=== PATIENT | male | born 1950 | race African-American/Black ===

== ENCOUNTER 2017-09-25 08:39 | Outpatient (CLI) | payer MEDICARE ==
--- NOTE | 2017-09-25 09:54 | CT ---
CT CHEST WITHOUT CONTRAST: Date: 09/25/17 HISTORY: COPD, pulmonary nodule. COMPARISON: 09/12/16. FINDINGS: Absence of IV contrast reduces the sensitivity of exam, particularly for the evaluation of mediastina l, hilar, and vascular structures. There are vascular calcifications without evidence of aneurysmal dilatation of the thoracic aorta. No pleural or pericardial effusions are seen. The tracheobronchial tree is patent. The 7.0 mm nodular density with associated scarring in the right upper lobe is stable. Scarring in th e left lung is again seen. Evidence of old granulomatous disease is again noted. No new parenchymal l randolph nodules are identified. Bony structures are stable. IMPRESSION: Stable exam. POS: OFF
== END 2017-09-25 08:40 | disposition home or self-care (01) ==
LOC: CT 08:39
PROVIDERS: ATTEND Internal Medicine
DX: J44.9 Chronic obstructive pulmonary disease, unspecified (principal); R91.1 Solitary pulmonary nodule
CPT/HCPCS: 71250

== ENCOUNTER 2018-09-24 08:57 | Outpatient (CLI) | payer MEDICARE ==
[2018-09-24 09:27] LABS: Estimated GFR-MDRD - POC Greater than 90
--- NOTE | 2018-09-24 10:16 | CT ---
CONTRAST ENHANCED CT CHEST: History: Patient with pulmonary nodules Comparison: CT September 2017 FINDINGS: Contrast enhanced CT of the chest demonstrates areas of lung parenchymal scarring in both upper lobes . An area of spiculated density in the right upper lobe is stable and unchanged since the previous ex am. Areas of lung parenchymal granulomatous changes seen in the left lung base. Extensive coronary artery calcifications seen. IMPRESSION: Stable CT appearance of the chest. POS: KIKEH
[2018-09-24] MEDS ORDERED: ISOVUE-370 76%-LOCM 1 ML ONE (13:39)
== END 2018-09-24 08:58 | disposition home or self-care (01) ==
LOC: BICCT 08:57
PROVIDERS: ATTEND Internal Medicine
DX: R91.1 Solitary pulmonary nodule (principal)
CPT/HCPCS: 71260; 82565

== ENCOUNTER 2019-03-06 13:56 | Inpatient (IN) | payer MEDICARE ==
[2019-03-06 14:36] LABS: Hemoglobin 14.4 g/dL (14.0-18.0); Mean Corpuscular HGB CONC 32.2 g/dL (32.0-36.0); Mean Corpuscular Hemoglobin 30.3 pg (27.0-31.0); Mean Corpuscular Volume 94.1 fL (78.0-98.0); Mean Platelet Volume 8.1 fL (7.4-10.4); Platelet Count 286 thou/uL (130-400); RBC Distribution Width 13.5 % (11.5-14.5); Red Blood Cell (RBC) Count 4.75 mill/uL (4.70-6.10); White Blood Cell (WBC) Count 4.4 thou/uL (4.8-10.8)
--- NOTE | 2019-03-06 14:46 | RAD ---
EXAM: Single view of the chest HISTORY: Shortness of breath COMPARISON: 02/27/2019 FINDINGS: Single view of the chest shows a normal sized cardiomediastinal silhouette. Stable increas ed interstitial markings are seen in the right apex. There is no evidence of consolidation, mass, or pleural effusion. The bones are unremarkable. IMPRESSION: No evidence of acute cardiopulmonary disease
[2019-03-06 14:53] LABS: Lymphocytes 22 % (21-51); MDiff Complete? YES; Monocytes 8 % (0-10); Neutrophil 68 % (42-75); Platelet Morphology Comment Appears Adequate; Reactive Lymphocytes 2 % (0-10)
[2019-03-06 14:58] LABS: ALT (SGPT) 23 U/L (8-55); AST (SGOT) 24 U/L (5-34); Albumin 3.6 g/dL (3.4-4.8); Alkaline Phosphatase 68 U/L (40-150); Anion Gap 16 mmol/L (10-20); BUN (Urea Nitrogen) 17 mg/dL (8.4-25.7); Bilirubin, Total 0.5 mg/dL (0.2-1.2); Calc. Creatinine Clearance 0 mL/min (70-130); Calcium 8.8 mg/dL (7.8-10.44); Carbon Dioxide 26 mmol/L (23-31); Chloride 105 mmol/L (98-107); Estimated GFR-MDRD 90; Globulin 2.4 g/dL (2.4-3.5); Glucose 119 mg/dL (80-115); Potassium 4.6 mmol/L (3.5-5.1); Sodium 142 mmol/L (136-145)
[2019-03-06] MEDS ORDERED: Furosemide 40 MG/4 ML VIAL ONE (15:49)
[2019-03-06 18:19] LABS: Troponin I 0.025 ng/mL (< 0.028)
[2019-03-06 20:47] LABS: Troponin I 0.018 ng/mL (< 0.028)
[2019-03-06] MEDS ORDERED: hydrALAZINE 20 MG/ML VIAL SLOW IVP PRN (22:24)
[2019-03-06] MEDS ORDERED: Ondansetron PF 4 MG/2 ML Vial IVP PRN (22:27)
[2019-03-06] MEDS ORDERED: Acetaminophen 325 MG TAB PO PRN (22:27)
[2019-03-06] MEDS ORDERED: Ondansetron ODT 4 MG TAB PO PRN (22:27)
[2019-03-06] MEDS ORDERED: Nicotine 14 MG PATCH TD SCH (22:30)
[2019-03-07] MEDS ORDERED: Thiamine HCl 200 MG/2 ML VIAL IM SCH (00:15)
[2019-03-07] MEDS ORDERED: Diazepam 5 MG TAB PO PRN (00:15)
[2019-03-07] MEDS ORDERED: Diazepam 5 MG TAB PO SCH (00:15)
[2019-03-07 00:22] LABS: Medtox Reader # READER 1
[2019-03-07 00:23] LABS: Amphetamine Not Detected (NotDetected); Barbiturates Screen Not Detected (NotDetected); Benzodiazepine Screen Not Detected (NotDetected); Cocaine Metabolite Screen Detected (NotDetected); Medtox Control Line Valid? VALID (VALID); Methadone Not Detected (NotDetected); Methamphetamine Not Detected (NotDetected); Opiate Screen Not Detected (NotDetected); Oxycodone Screen Not Detected (NotDetected); Phencyclidine (PCP) Not Detected (NotDetected); THC/Cannabinoid Screen Not Detected (NotDetected); Tricyclic Screen Not Detected (NotDetected)
[2019-03-07 00:43] LABS: Anion Gap 11 mmol/L (10-20); BUN (Urea Nitrogen) 16 mg/dL (8.4-25.7); Calc. Creatinine Clearance 70 mL/min (70-130); Calcium 9.2 mg/dL (7.8-10.44); Carbon Dioxide 36 mmol/L (23-31); Chloride 101 mmol/L (98-107); Estimated GFR-MDRD Greater than 90; Glucose 96 mg/dL (80-115); Magnesium 1.5 mg/dL (1.6-2.6); Potassium 3.9 mmol/L (3.5-5.1); Sodium 144 mmol/L (136-145)
[2019-03-07] MEDS ORDERED: PROVENTIL INHALER 6.7 G (200 INHALATIONS) INH PRN (01:00)
[2019-03-07] MEDS ORDERED: Magnesium 2 GM/50 ML 1 GM in Premix Bag 1 BAG IVPB SCH (02:15)
[2019-03-07] MEDS ORDERED: Amiodarone 150 MG in Dextrose 5% in Water 100 ML IVPB SCH (02:30)
--- NOTE | 2019-03-07 02:30 | HP ---
PRIMARY CARE PHYSICIAN: Todd Lopez MD CHIEF COMPLAINT: Shortness of breath and lower extremity edema. HISTORY OF PRESENT ILLNESS: Mr. Dowd is a 68-year-old man with past medical history of chronic obstructive pulmonary disease, who he is under the direct care of Dr. Sherry hastings, who presented to [facility] earlier today after he experienced worsening shortness of breath and lower extremity edema today. He states he had noticed swelling down his lower extremities developed about 3 weeks ago and had gradually worsened since. He had denied any fever, chills, any headache, blurred vision, or dizziness. He had denied any chest pain, palpitations, abdominal pain, nausea, vomiting, or any change with his stool. He reports drinking about 2 to 3 beers a day, which he states that he had one this morning prior to coming to the hospital. He had denied any symptoms of heart failure in the past , he had denied any history. During his initial workup, cardiac enzymes were found to be negative x2. BNP was elevated at 969.2. Portable chest x-ray was performed and showed no evidence of acute cardiopulmonary disease. Due to the suspicion of a new CHF, the patient was given bolus of IV furosemide 40 mg in the emergency department x1. A consult for Cardiology Services, Dr. Layton, was placed and an echocardiogram was ordered for the morning. It was determined that the patient will be admitted for further workup and management of his symptoms. REVIEW OF SYSTEMS: All other systems reviewed and found to be negative unless mentioned in the HPI. PAST MEDICAL HISTORY: Chronic obstructive pulmonary disease. PAST SURGICAL HISTORY: Leg surgery. SOCIAL HISTORY: The patient reports drinking 2 to 3 beers a day. He states that he has abused marijuana in the past and he uses off and on, and he reports smoking about a half pack of cigarettes per day. KNOWN ALLERGIES: None. CURRENT HOME MEDICATIONS: 1. Aspirin 81 mg daily. 2. Albuterol 90 mcg one inhalation q.6 hours as needed for shortness of breath. 3. Anoro one inhalation daily. PHYSICAL EXAMINATION: VITAL SIGNS: BP 109/72, pulse 94, respirations 16, temperature 97.3 degrees Fahrenheit, O2 saturation 92% on room air. GENERAL: The patient is awake, alert, and oriented x3. He is currently lying comfortably in bed, in no acute distress at this time. HEENT: Atraumatic, normocephalic. Pupils are round and reactive to light. Extraocular muscles intact. Moist mucous membranes noted. Poor oral hygiene noted. NECK: Soft and supple. JVD noted. Trachea midline. CARDIOVASCULAR: Positive S1 and S2. Regular rate and rhythm. No murmur auscultated. RESPIRATORY: Clear to auscultation bilaterally. No wheezes, rales, or rhonchi. ABDOMEN: Soft and nontender. Bowel sounds present. MUSCULOSKELETAL: Strength 5+ bilaterally upper and lower extremities. Moves all extremities equal. Pedal and radial pulses 2+ bilaterally. 2 to 3+ pitting edema noted in bilateral lower extremities up to his knees. NEUROLOGIC: Cranial nerves II through XII grossly intact. No focal deficits noted. Speech intact and normal. Gait not assessed. SKIN: Warm, dry, and intact. No rashes. No ulceration noted. PSYCHIATRIC: Good mood and affect. LABORATORY DATA: WBC 4.4, RBC 4.75, hemoglobin 14.4, platelets 286. Sodium 142 , potassium 4.6, anion gap 16, BUN 17, creatinine 0.85, estimated GFR 90, glucose 119. Troponin 0.021, 0.025, 0.018. BNP 969.2. Portable chest x-ray showed no evidence of acute cardiopulmonary disease. ASSESSMENT AND PLAN: 1. New onset congestive heart failure, the patient's BNP is elevated at 969, and due to patient's symptoms of his shortness of breath and bilateral lower extremity edema, he will be treated symptomatically with IV furosemide. Consult Cardiology Services, Dr. Layton, will be placed, and an echocardiogram is ordered at this time. We will monitor the patient's electrolytes and he will remain on telemetry for further monitoring. 2. Chronic obstructive pulmonary disease, currently stable at this time. He will be restarted on his home regimen at this time and he will be monitored closely for any symptoms. 3. Deep venous thrombosis and gastrointestinal prophylaxis. CODE STATUS: Full code. His surrogate decision maker will be Dmitry Hoff per patient. DISPOSITION: Pending further workup and clinical findings. Job ID: [id number] MTDD
[2019-03-07] MEDS: Furosemide 40 MG/4 ML VIAL SLOW IVP SCH (05:51)
[2019-03-07 06:07] LABS: Anion Gap 12 mmol/L (10-20); BUN (Urea Nitrogen) 14 mg/dL (8.4-25.7); Calc. Creatinine Clearance 81 mL/min (70-130); Calcium 8.7 mg/dL (7.8-10.44); Carbon Dioxide 30 mmol/L (23-31); Chloride 102 mmol/L (98-107); Estimated GFR-MDRD Greater than 90; Glucose 123 mg/dL (80-115); Potassium 3.9 mmol/L (3.5-5.1); Sodium 140 mmol/L (136-145)
[2019-03-07 06:14] LABS: Troponin I 0.014 ng/mL (< 0.028)
[2019-03-07] MEDS: Folic Acid 1 MG TAB PO SCH (08:05)
[2019-03-07] MEDS: Enoxaparin Sodium 40 MG/0.4 ML SYRINGE SC SCH (08:05)
[2019-03-07] MEDS: Famotidine 20 MG TAB PO SCH ×2 (08:05→20:30)
[2019-03-07] MEDS: Multivitamin W/ Minerals 1 TAB PO SCH (08:05)
[2019-03-07 08:06] LABS: Hemoglobin 13.7 g/dL (14.0-18.0); Mean Corpuscular HGB CONC 31.9 g/dL (32.0-36.0); Mean Corpuscular Hemoglobin 29.9 pg (27.0-31.0); Mean Corpuscular Volume 93.8 fL (78.0-98.0); Mean Platelet Volume 8.1 fL (7.4-10.4); Platelet Count 267 thou/uL (130-400); RBC Distribution Width 13.5 % (11.5-14.5); Red Blood Cell (RBC) Count 4.56 mill/uL (4.70-6.10); White Blood Cell (WBC) Count 4.4 thou/uL (4.8-10.8)
[2019-03-07] MEDS ORDERED: Aspirin 81 mg Enteric Coated Tablet PO SCH (09:00)
[2019-03-07 09:15] LABS: Eosinophils 2 % (0-10); Lymphocytes 39 % (21-51); MDiff Complete? YES; Metamyelocyte 1 % (0-0); Monocytes 13 % (0-10); Neutrophil 39 % (42-75); RBC Morphology Normal; Reactive Lymphocytes 6 % (0-10)
[2019-03-07] MEDS ORDERED: Labetalol HCl 100 MG/20 ML VIAL SLOW IVP SCH (09:30)
[2019-03-07] MEDS ORDERED: Labetalol HCl 100 MG/20 ML VIAL SLOW IVP STA (09:46)
[2019-03-07] MEDS ORDERED: Iopamidol 370 76% 100 ML VIAL ONE (09:53)
[2019-03-07] MEDS ORDERED: Nitroglycerin 2% Ointment 1 INCH/1 GM Packet TOP SCH (10:00)
[2019-03-07] MEDS ORDERED: Magnesium 2 GM/50 ML 2 GM in Premix Bag 1 BAG IVPB SCH (10:00)
[2019-03-07] MEDS: Amiodarone 450 MG in Dextrose 5% in Water 250 ML IVPB SCH ×2 (10:57→19:00)
--- NOTE | 2019-03-07 11:02 | CON ---
DATE OF CONSULTATION: 03/07/2019 REASON FOR CONSULTATION: Wide-complex tachycardia. HISTORY OF PRESENT ILLNESS: Mr. Dowd is a 68-year-old gentleman, who comes to the hospital for shortness of breath. He was admitted and was found to have a BNP of 900, which was new, so he was given a dose of Lasix for possible CHF. He also had lower extremity edema. He admits to having mild chest pain in the midsternal area. This morning, he started having episodes of wide-complex rhythm. Heart rate in the 140s to 150s, just lightheadedness, but no syncope. He eventually went back in sinus, has remained in sinus. Concern for VT, so Cardiology has been consulted. He has never had a workup on his heart in the past. He does follow up with Dr. Powell for COPD as he smokes. He also reports drinking about 3 beers every day and abusing marijuana. His UDS was positive for cocaine, so he admits to using it on Sunday. PAST MEDICAL HISTORY: COPD. PAST SURGICAL HISTORY: Leg surgery. SOCIAL HISTORY: Drinks 3 beers a day. Uses marijuana and cocaine. Smokes half pack cigarettes a day. ALLERGIES: NO KNOWN DRUG ALLERGIES. OUTPATIENT MEDICATIONS: 1. Aspirin 81 a day. 2. Albuterol inhaler. REVIEW OF SYSTEMS: A 12-point review of systems was done and was all negative unless stated in the history of present illness. PHYSICAL EXAMINATION: VITAL SIGNS: Temperature 97.5, pulse is 60 to 150, blood pressure 138/82, and saturating 98% on 2 L nasal cannula. GENERAL: Awake, alert, and oriented x3, in no distress. HEENT: Normocephalic, atraumatic. NECK: Supple. LUNGS: Have reduced breath sounds bilaterally. CARDIOVASCULAR: Distant heart sounds. S1 and S2. ABDOMEN: Soft. Positive bowel sounds. EXTREMITIES: Trace edema. SKIN: Warm and dry. LABORATORY DATA: Laboratory work was reviewed. White count of 4, hemoglobin of 14, hematocrit of 44, and platelet count of 286. Chemistries were unremarkable. Troponin negative x3. BNP was 969. Toxicology, positive for cocaine. IMAGING DATA: EKG was reviewed. Chest x-ray was reviewed. ASSESSMENT AND PLAN: 1. Wide-complex tachycardia, concern for VT. 2. Elevated BNP, concern for new onset congestive heart failure. 3. Substance abuse in the form of alcohol, cocaine, and marijuana. 4. Chronic obstructive pulmonary disease with possible exacerbation. PLAN: 1. Given his episodes of wide-complex rhythm being concerning for VT, we will have to rule out ischemia. We will plan on doing a heart catheterization. He is quite comfortable lying flat on his back, so we will get this done later today. 2. Continue amiodarone drip. 3. Agree with magnesium replacement. 4. Further recommendations per results of left heart catheterization and echocardiogram. Job ID: [id number]
--- NOTE | 2019-03-07 11:46 | PDOC.PN ---
- Subjective Encounter Start Date: 03/07/19 Encounter Start Time: 09:00 Subjective: no chest pain or sob, has palpitations/skipped beat per patient -: no abd pain or nausea -: No prior cardiac w/u, admits to using cocaine on sunday, drinks 3-5 beers/d - Objective Resuscitation Status - Order Detail: 03/06/19 22:27 Resuscitation Status Routine Co-Sign Provider: Resuscitation Status: FULL: Full Resuscitation MAR Reviewed: Yes Vital Signs & Weight: Vital Signs (12 hours) Temp Pulse Resp BP BP Pulse Ox 03/07/19 10:37 125 H 138/82 03/07/19 09:43 125 H 138/82 03/07/19 08:09 136/66 18 L 03/07/19 07:30 136/66 03/07/19 07:27 97.5 F L 100 18 95 03/07/19 06:36 92 L 03/07/19 06:31 121 H 20 85 L 03/07/19 04:00 140/72 92 L 03/07/19 03:29 97.9 F 90 22 H 132/68 92 L 03/07/19 02:15 109 H 03/07/19 01:26 108 H 15 95 03/07/19 01:00 109/72 Weight Weight 130 lb 1 oz I&O: 03/06/19 03/07/19 03/08/19 06:59 06:59 06:59 Intake Total 634.4 Output Total 1475 175 Balance -840.6 -175 Result Diagrams: 03/07/19 05:07 03/07/19 05:07 Phys Exam - Physical Examination HEENT: PERRLA, moist MMs Neck: no JVD, supple Respiratory: no wheezing, no rales rhonchi+ Cardiovascular: RRR, no significant murmur Gastrointestinal: soft, non-tender, positive bowel sounds Musculoskeletal: no edema, pulses present Neurological: non-focal, moves all 4 limbs Psychiatric: normal affect, A&O x 3 Dx/Plan (1) V-tach Code(s): I47.2 - VENTRICULAR TACHYCARDIA Status: Suspected (2) Acute exacerbation of CHF (congestive heart failure) Code(s): I50.9 - HEART FAILURE, UNSPECIFIED Status: Acute Qualifiers: Heart failure type: unspecified Qualified Code(s): I50.9 - Heart failure, unspecified (3) Cocaine abuse Code(s): F14.10 - COCAINE ABUSE, UNCOMPLICATED Status: Acute (4) COPD (chronic obstructive pulmonary disease) Status: Chronic Qualifiers: COPD type: chronic bronchitis (5) Alcohol abuse Code(s): F10.10 - ALCOHOL ABUSE, UNCOMPLICATED Status: Chronic (6) Tobacco abuse Code(s): Z72.0 - TOBACCO USE Status: Chronic - Plan is on amiodarone drip, has recieved 2 doses of 2g mgso4 iv -: was given a dose of labetalol to break wide complex tach likely vtach -: d/w and -: aspirin, nitropaste, lasix -: for cath today, pending echo. Counselled reg cocaine/alc and tob usage * . Review of Systems - Medications/Allergies Allergies/Adverse Reactions: Allergies Allergy/AdvReac Type Severity Reaction Status Date / Time No Known Allergies Allergy Verified 03/06/19 18:19 Medications: Current Medications Acetaminophen (Tylenol) 650 mg PO Q4H PRN PRN Reason: Headache/Fever/Mild Pain (1-3) Albuterol Sulfate (Proventil Hfa) 2 puff INH Q4HR PRN PRN Reason: SOB &/or Wheezing Albuterol/Ipratropium (Duoneb) 3 ml NEB Q6HR [facility] Last Admin: 03/07/19 06:31 Dose: 3 ml Aspirin (Ecotrin) 81 mg PO DAILY [facility] Last Admin: 03/07/19 08:05 Dose: 81 mg Diazepam (Valium) 10 mg PO ONE [facility] Stop: 03/14/19 00:16 Last Admin: 03/07/19 02:55 Dose: 10 mg Diazepam (Valium) 10 mg PO Q4H PRN PRN Reason: FOR ASE 10 OR GREATER Stop: 03/08/19 04:00 Diazepam (Valium) 5 mg PO Q4H PRN PRN Reason: FOR ASE 10 OR GREATER Enoxaparin Sodium (Lovenox) 40 mg SC 0900 [facility] Last Admin: 03/07/19 08:05 Dose: 40 mg Famotidine (Pepcid) 20 mg PO BID [facility] Last Admin: 03/07/19 08:05 Dose: 20 mg Folic Acid (Folvite) 1 mg PO DAILY [facility] Last Admin: 03/07/19 08:05 Dose: 1 mg Furosemide (Lasix) 40 mg SLOW IVP 0600,1400 [facility] Last Admin: 03/07/19 05:51 Dose: Not Given Hydralazine HCl (Apresoline) 10 mg SLOW IVP Q4H PRN PRN Reason: Hypertension Amiodarone HCl 450 mg/ (Dextrose/Water) 259 mls @ 0 mls/hr IVPB INF SHARON; Protocol Last Admin: 03/07/19 10:57 Dose: 259 mls Magnesium Sulfate 2 gm/ Device 50 mls @ 50 mls/hr IVPB 1000 [facility] Stop: 03/07/19 12:00 Last Admin: 03/07/19 10:36 Dose: 50 mls Iron/Minerals/Multivitamins (Theragran M) 1 tab PO DAILY [facility] Last Admin: 03/07/19 08:05 Dose: 1 tab Magnesium Oxide (Magnesium Oxide) 400 mg PO DAILY [facility] Miscellaneous (Ase Protocol) 1 each FS ONE [facility] Stop: 03/17/19 00:16 Miscellaneous Information (Communication Order-Pharmacy) 0 each FS .CATH Sun [facility] Stop: 03/07/19 16:00 Nitroglycerin (Nitro-Bid 2% Ointment) 0.5 inch TOP 0200,1000,1800 [facility] Last Admin: 03/07/19 09:53 Dose: 0.5 inch Ondansetron HCl (Zofran Odt) 4 mg PO Q6H PRN PRN Reason: Nausea/Vomiting Ondansetron HCl (Zofran) 4 mg IVP Q6H PRN PRN Reason: Nausea/Vomiting Sodium Chloride (Flush - Normal Saline) 10 ml IVF Q12HR [facility] Last Admin: 03/07/19 08:10 Dose: 10 ml Sodium Chloride (Flush - Normal Saline) 10 ml IVF PRN PRN PRN Reason: Saline Flush Thiamine HCl (Thiamine) 100 mg PO DAILY [facility]
[2019-03-07] MEDS ORDERED: Fentanyl 100 MCG/2 ML VIAL ONE (12:29)
[2019-03-07] MEDS ORDERED: DOBUTamine 250 MG/20 ML VIAL ONE ×2 (12:50→12:51)
[2019-03-07] MEDS ORDERED: Heparin 10,000 UNITS/1 ML VIAL ONE ×2 (12:53→13:27)
[2019-03-07] MEDS ORDERED: Norepinephrine 4 MG/4 ML VIAL ONE (12:58)
[2019-03-07] MEDS ORDERED: TICAGRELOR 90 MG TABLET ONE (12:59)
[2019-03-07] MEDS ORDERED: Nitroglycerin 100MG/250ML BOT 250 ML ONE (13:07)
[2019-03-07] MEDS ORDERED: DOPamine 400 MG/D5W 250 ML 250 ML ONE (13:27)
[2019-03-07] MEDS ORDERED: Sodium Chloride 0.9% 1,000 ML IV SCH (14:45)
[2019-03-07] MEDS ORDERED: TICAGRELOR 90 MG TABLET PO SCH (15:00)
--- NOTE | 2019-03-07 16:09 | CON ---
DATE OF CONSULTATION: 03/07/2019 HISTORY OF PRESENT ILLNESS: I am seeing Mr. 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 His problems are, 1. Dense ventricular ectopy, long runs of ventricular tachycardia, appears to be monomorphic, right bundle, left axis in morphology. 2. Chronic systolic congestive heart failure with ischemic cardiomyopathy. a. Reduced LVEF at 20% to 25%, mild mitral regurgitation, mild aortic regurgitation, tricuspid regurgitation, moderate right and left atrial enlargement. Four chamber enlargement seen on echo on 02/25/2019. b. Left heart catheterization demonstrates 70% LAD disease, stented with the BMS stent x2; chronic total circumflex occlusion. 3. History of COPD and tobacco abuse. 4. Active cocaine use, most recently admits to using it last Sunday. ALLERGIES: NONE NOTED. MEDICATIONS: At home included, 1. Aspirin. 2. Anoro Ellipta. SUBJECTIVE: Mr. Dowd is a poor historian. From the note, it seems that he has been admitted with progressive dyspnea. He was found to have elevated BNP. Also, runs of wide-complex tachycardia was seen at rates of 140 to 150 beats per minute. He had no full loss of consciousness. No fever, chills, headaches, blurred vision, or dizziness. He does not have any chest pains and did not feel palpitations. No abdominal pain, nausea and vomiting are noted. No bloody stools or any other bleeding issues. No stroke-like symptoms. No fever, chills, or cough. He has progressive lower extremity edema. Rest of 12-point system otherwise unremarkable. PAST MEDICAL HISTORY: As above. SOCIAL HISTORY: The patient drinks 2 to 3 beers a day. He did use to use marijuana and also smokes half-pack of cigarettes a day. He does admit to using cocaine, most recently Sunday. FAMILY HISTORY: Not contributory. PAST SURGICAL HISTORY: Left leg surgery. OBJECTIVE DATA: VITAL SIGNS: Blood pressure is 90/63, heart rate 62, respiratory rate is 18, and temperature 97.4 degrees Fahrenheit. PHYSICAL EXAMINATION: GENERAL: Alert and oriented man, in no apparent distress. NECK: Supple. Jugular veins not distended. CHEST: Coarse without crackles. HEART: Sounds are regular to rate and rhythm. No murmur is heard. Gallop is appreciated. ABDOMEN: Benign. Bowel sounds positive. EXTREMITIES: Legs without edema, clubbing, or cyanosis. NEUROLOGIC: The patient is nonfocal. MUSCULOSKELETAL: No joint swelling or deformity. SKIN: Without rash. DATABASE: The EKG is reviewed, initially revealing sinus rhythm with frequent bigeminal PVCs. The PVCs are monomorphic. Right bundle or left axis in morphology is seen. AVR is positive. Subsequent EKGs reveal sinus rhythm with nonsustained runs of wide-complex rhythm and the same morphology. Telemetry strips likewise. LABORATORY DATA: White cell count 4.4, hemoglobin 13.7, and platelet count is 267. Sodium 140, potassium 3.9, BUN is 14, and creatinine 0.74. The magnesium initially was 1.5. They need to be replaced. Troponin I 0.025, 0.018, and 0.014. The chest x-ray from 03/06/2019 shows no evidence of acute cardiopulmonary disease. ASSESSMENT AND PLAN: Mr. Dowd is a 68-year-old man with history of chronic obstructive pulmonary disease, who is presenting with progressive dyspnea, some evidence of fluid overload, heart failure exacerbation, also had nonsustained wide-complex tachycardia requiring intravenous amiodarone and also labetalol therapy. I told him that his heart rhythm seems to have stabilized. He underwent left heart catheterization today demonstrating 100% circumflex occlusion and tight LAD stenosis, which was stented by Dr. Layton. His baseline echocardiogram reveals severe LV dysfunction of 20% to 25%. Unfortunately, he also has a history of drug abuse and cocaine abuse. Currently, I agree with the initiated management of IV and then p.o. amiodarone and beta-agustin therapy. Hopefully, the ventricular ectopy will improve with optimization of his coronary circulation. Nevertheless, transient suppression of these ventricular arrhythmias are reasonable. Long-term, he may be poor amiodarone candidate. If the ventricu;ar ectopy does not sanjay in spite of these measures, ablation is a remote possibility. On the other hand, for now, I would prefer medical management and optimization of his cardiac function. Clearly, he needs to quit substance abuse. Long-term, if no improvement in LVEF is seen over 3 months of aggressive medical management beyond 35%, we could consider ICD therapy. For now, he is not a candidate for that. Job ID: [id number] [facility]
[2019-03-07] MEDS ORDERED: Lorazepam 2 MG/ML VIAL SLOW IVP SCH ×2 (18:15→19:15)
[2019-03-07] MEDS ORDERED: Furosemide 40 MG/4 ML VIAL ONE (18:36)
[2019-03-07] MEDS ORDERED: Lorazepam 2 MG/ML VIAL ONE (18:59)
[2019-03-07 19:03] LABS: #Basophils 0.2 thou/uL (0.0-0.2); #Lymphocytes 1.4 thou/uL (1.20-3.40); #Monocytes 0.9 thou/uL (0.11-0.59); #Neutrophils 4.6 thou/uL (1.40-6.50); %Basophils 2.5 % (0.0-1.0); %Eosinophils 0.2 % (0.0-10.0); %Lymphocytes 20.1 % (21.0-51.0); %Neutrophils 65.2 % (42.0-75.0); Hemoglobin 14.9 g/dL (14.0-18.0); Mean Corpuscular Hemoglobin 29.5 pg (27.0-31.0); Mean Corpuscular Volume 95.2 fL (78.0-98.0); Mean Platelet Volume 8.2 fL (7.4-10.4); Platelet Count 262 thou/uL (130-400); RBC Distribution Width 13.7 % (11.5-14.5); Red Blood Cell (RBC) Count 5.03 mill/uL (4.70-6.10); White Blood Cell (WBC) Count 7.1 thou/uL (4.8-10.8)
[2019-03-07] MEDS ORDERED: Lorazepam 2 MG/ML VIAL SLOW IVP PRN ×2 (19:09→19:44)
[2019-03-07] MEDS ORDERED: Morphine 4 MG/ML VIAL ONE (19:23)
[2019-03-07] MEDS ORDERED: Morphine 4 MG/ML VIAL SLOW IVP SCH (19:30)
[2019-03-07] MEDS ORDERED: Propofol 1,000 MG/100 ML VIAL IV PRN (19:44)
[2019-03-07] MEDS ORDERED: Fentanyl BOLUS 250 ML IVPB PRN (19:44)
[2019-03-07] MEDS ORDERED: Morphine 2 MG/ML SYRINGE SLOW IVP PRN (19:44)
[2019-03-07] MEDS ORDERED: Propofol BOLUS 1,000 MG/100 ML VIAL IV PRN (19:44)
[2019-03-07] MEDS ORDERED: Propofol 1,000 MG/100 ML VIAL IV ONE (19:46)
[2019-03-07] MEDS: Ventilator Sedation Protocol 1 EACH FS SCH (20:04)
--- NOTE | 2019-03-07 20:14 | RAD ---
PORTABLE CHEST: 03/07/19 Supine exam. HISTORY: Assess NG tube and ET tube. COMPARISON: 03/06/19. FINDINGS/IMPRESSION: ET tube is in place with tip above scar. NG tube is in place with tip in the epigastric fundal sanjana on. There are bilateral perihilar haziness which may represent edema or infiltrates. Heart size is upper normal and stable. POS: AGW
[2019-03-07 20:34] LABS: Actual Bicarbonate (HCO3a) 31.2 mEq/L (22-28); Base Excess (BEa) 5.3 mEq/L (-2.0 to +3.0); CO2 Tension 50.8 mmHg (35.0-45.0); Calcium, Ionized 1.13 mmol/L (1.12-1.30); Carboxyhemoglobin (COHb) 1.3 gm% (0.0-3.0); Hemoglobin (Hb) 13.3 g/dL (14.0-18.0); O2 Tension (PaO2) 104.8 mmHg (> 80.0); Potassium - ABG Lab 3.65 mmol/L (3.70-5.30); pH, Arterial 7.41 (7.35-7.45)
[2019-03-07 20:36] LABS: Puncture Site L RADIAL
--- NOTE | 2019-03-07 21:07 | PRG ---
DATE OF SERVICE: 03/07/2019 Mr. Dowd had a heart catheterization earlier today. He was found to have severe LAD stenosis as well as a chronically occluded left circumflex. He received drug-eluting and three bare metal stents to his LAD. He was hypotensive initially and was placed on both dobutamine and Levophed. Eventually, he was weaned off at least to quite rapidly and was normotensive. He then started complaining about shortness of breath soon after his sheath was pulled out. At this point, he was gasping for air, trying to get up, he had to lay flat for his sheath pulling, and he could not bear to brief, he would stand up, so we gave him a dose of IV Lasix. He put out about half a liter within the first 30 minutes, and he was placed on a BiPAP. He continued to be severely short-winded and very agitated. He was also given Ativan because of his history of alcohol use and possible withdrawal symptoms. This did not really calm him down too much. He was still very agitated. Second to this, Dr. Guerra was called in for further assistance hopefully for intubation of the patient. He also went into having again more those runs of nonsustained ventricular tachycardia, so amiodarone drip was started. This is already starting to calm down. H and H were done. He was complaining of some abdominal pain and he is not anemic, so very low risk, very very low possibility of a retroperitoneal bleed as his abdomen pain was really negligible for him. Over 45 minutes was spent at bedside for critical care. Dr. Guerra took over at that point to secure the airway. Job ID: [id number]
--- NOTE | 2019-03-07 21:19 | PRG ---
DATE OF SERVICE: 03/07/2019 TIME SPENT: This is 60 minutes of critical care time. SUBJECTIVE: I was called by Dr. Layton to see this patient. He became acutely agitated and dyspneic around 6:00 p.m. There was an attempt to noninvasively ventilate the patient, but the patient could not tolerate it. He was grabbing and removing medical devices. He was subsequently given Lasix and he did diurese some. I arrived about 6:45. I gave the patient about 30 minutes to see if he would stabilize, however, he continued to be very agitated. On exam, he had JVD up to the angle of his jaw. He was profusely diuresing, but he was hypotensive and having very frequent episodes of AV brittny reentrant tachycardia. I elected to intubate him. He was given etomidate 40 mg IV x1. Using the 8.0 tube, he was intubated with GlideScope visualization orally. The tube was passed through the vocal cords without difficulty. Initially, there appeared to be an air leak. This was probably secondary to the cuff being inflated above the cords. The cuff was deflated. The tube was placed lower at 25 cm at the lip and the cuff was reinflated with good seal. X-ray confirmed proper placement. X-ray also showed diffuse pulmonary edema. The patient will be ventilated and sedated overnight. Postop ABG is pending. Job ID: [id number]
--- NOTE | 2019-03-07 21:23 | CON ---
DATE OF CONSULTATION: 03/07/2019 CONSULTING PHYSICIAN: Dr. Colvin. REASON FOR CONSULTATION: ICU care. SUBJECTIVE: The following encompassed 70 minutes time, of that time, greater 50% was spent with the patient and/or the patient's unit in the hospital. HISTORY OF PRESENT ILLNESS: This is a 68-year-old male, who I am seeing because he is hypotensive after cardiac catheterization. Apparently during the procedure, he received some propofol for sedation. He had some type of stent deployment in the LAD. He was started on dopamine and Levophed. However, in the recovery room, his blood pressure is quite adequate and so I am encouraging the nurses to get him off the medication. Apparently, he is going to the CCU solely because he is still on vasopressors. The patient has seen Dr. Powlel in the past for COPD. PAST MEDICAL HISTORY: 1. Severe chronic obstructive pulmonary disease with baseline FEV1 of about 39% predicted. He also has hyperinflation, air trapping and grossly diminished DLCO. 2. Coronary artery disease. 3. Substance abuse. PAST SURGICAL HISTORY: He has had some type of leg surgery in the past. SOCIAL HISTORY: He is a user of marijuana and cocaine. He also smokes half pack per day. Drinks 3 beers per day. ALLERGIES: NONE. MEDICATIONS: Prior to admission aspirin 81 mg daily and albuterol metered-dose inhaler as needed. FAMILY MEDICAL HISTORY: Unremarkable. REVIEW OF SYSTEMS: Cannot be obtained as patient is currently sedated. PHYSICAL EXAMINATION: VITAL SIGNS: Pulse is in the 60s, blood pressure 150/80, respiratory rate 18. GENERAL: The patient is arousable, deep sedation, but quickly falls back asleep. HEENT: Unremarkable. NECK: No JVD. LUNGS: Clear to auscultation. No wheezing, rhonchi. CARDIAC: S1-S2 regular without audible murmur, currently on Levophed, dopamine drip. ABDOMEN: Soft, nontender, and nondistended. He has an arterial sheath in the right groin. EXTREMITIES: No clubbing, cyanosis, edema. LABORATORY DATA: Sodium 140, potassium 3.9, chloride 102, CO2 of 30, BUN 14, creatinine 0.7, glucose 123. White blood cell count 4.4, hematocrit 42.8, and platelet count 267. Urine drug screen showed cocaine. ASSESSMENT: 1. Transient hypotension, probably related to the cardiac catheterization. He may become ischemic and had diminished cardiac output during the procedure. Propofol could also have caused the hypotension. 2. Ventricular tachycardia last night. 3. Systolic heart failure with ejection fraction 20% to 25% by echo. PLAN: 1. The patient will be placed in the CCU. We will attempt to wean his vasopressors rapidly. If we can get the vasopressors off the next hour to then I think we can forego having a central line placed. 2. Discussed with Dr. Foote. The patient will temporarily be on amiodarone, but I do not think long-term amiodarone would be advisable given his severe COPD and already diminished DLCO. 3. I will follow with you. Job ID: [id number]
[2019-03-07] MEDS: fentaNYL Citrate/PF 2,000 MCG in Sodium Chloride 0.9% 60 ML IV SCH (21:26)
[2019-03-08] MEDS ORDERED: Diazepam 5 MG TAB PO PRN (04:00)
[2019-03-08 05:22] LABS: ALT (SGPT) 16 U/L (8-55); AST (SGOT) 16 U/L (5-34); Albumin 3.3 g/dL (3.4-4.8); Alkaline Phosphatase 51 U/L (40-150); Anion Gap 10 mmol/L (10-20); BUN (Urea Nitrogen) 12 mg/dL (8.4-25.7); Bilirubin, Total 1.1 mg/dL (0.2-1.2); Calc. Creatinine Clearance 78 mL/min (70-130); Calcium 8.5 mg/dL (7.8-10.44); Carbon Dioxide 34 mmol/L (23-31); Chloride 101 mmol/L (98-107); Estimated GFR-MDRD Greater than 90; Globulin 2.2 g/dL (2.4-3.5); Glucose 80 mg/dL (80-115); Potassium 3.7 mmol/L (3.5-5.1); Protein, Total 5.5 g/dL (5.8-8.1); Sodium 141 mmol/L (136-145)
[2019-03-08 05:41] LABS: Hypochromia SLIGHT = 6-15 cells (100X) (0-5/hpf); Lymphocytes 27 % (21-51); MDiff Complete? YES; Monocytes 4 % (0-10); Neutrophil 66 % (42-75); Platelet Morphology Comment Appears Adequate; Reactive Lymphocytes 3 % (0-10)
[2019-03-08 05:42] LABS: Hemoglobin 12.5 g/dL (14.0-18.0); Mean Corpuscular HGB CONC 32.2 g/dL (32.0-36.0); Mean Corpuscular Hemoglobin 30.2 pg (27.0-31.0); Mean Corpuscular Volume 93.8 fL (78.0-98.0); Mean Platelet Volume 8.6 fL (7.4-10.4); Platelet Count 231 thou/uL (130-400); RBC Distribution Width 13.4 % (11.5-14.5); Red Blood Cell (RBC) Count 4.12 mill/uL (4.70-6.10); White Blood Cell (WBC) Count 6.1 thou/uL (4.8-10.8)
[2019-03-08 07:14] LABS: Actual Bicarbonate (HCO3a) 32.1 mEq/L (22-28); Base Excess (BEa) 8.7 mEq/L (-2.0 to +3.0); CO2 Tension 39.8 mmHg (35.0-45.0); Calcium, Ionized 1.11 mmol/L (1.12-1.30); Carboxyhemoglobin (COHb) 1.4 gm% (0.0-3.0); Hemoglobin (Hb) 12.9 g/dL (14.0-18.0); O2 Tension (PaO2) 96.5 mmHg (> 80.0); Potassium - ABG Lab 3.55 mmol/L (3.70-5.30); pH, Arterial 7.53 (7.35-7.45)
[2019-03-08 07:21] LABS: Puncture Site LRA
[2019-03-08] MEDS ORDERED: acetaZOLAMIDE Sodium 500 mg Vial IVP SCH (08:00)
[2019-03-08] MEDS: Furosemide 40 MG/4 ML VIAL SLOW IVP SCH ×2 (08:11→08:14)
--- NOTE | 2019-03-08 08:24 | PRG ---
DATE OF SERVICE: 03/08/2019 35 minutes critical care time. SUBJECTIVE: Mr. Dowd remains intubated on mechanical ventilation. He has been weaned off the propofol. This morning, he is just on a low dose of fentanyl. He is not agitated. OBJECTIVE: VITAL SIGNS: Temperature is 98.4, pulse 70, blood pressure 101/62, O2 saturation 98%. Intake 271, output 2535. HEENT: Unremarkable. NECK: No JVD. LUNGS: Fairly clear anteriorly. CARDIAC: S1, S2 regular without ectopy. ABDOMEN: Soft and nontender. EXTREMITIES: No clubbing, cyanosis, or edema. LABORATORY DATA: PH is 7.53, pCO2 of 39, pO2 of 96, SIMV rate 14, tidal volume 500, PEEP 5, pressure support 10, FiO2 of 50%. White blood cell count 6.1, hematocrit 38.6, and platelet count 231. Sodium 141, potassium 3.7, chloride 101, CO2 of 34, BUN 12, creatinine 0.79, glucose 80. ASSESSMENT: 1. Acute congestive heart failure, likely systolic dysfunction in the post catheterization recovery yesterday. 2. Acute respiratory failure, requiring mechanical ventilation. 3. Question of concurrent alcohol withdrawal. PLAN: 1. He is nearing the point, where we could consider weaning and extubating. I would like to give him a dose of acetazolamide since he is developing high bicarbonate causing a metabolic alkalosis. 2. Check later; consider extubation, if doing well. Job ID: [id number]
--- NOTE | 2019-03-08 08:29 | RAD ---
PORTABLE CHEST: HISTORY: Pneumonia followup. CCU followup. COMPARISON: 03/07/2019. FINDINGS: ET tube and NG Tube again noted. Hazy right perihilar and right lower lung infiltrate again noted. Vascularity is mildly prominent but stable. IMPRESSION: No acute change from yesterday. POS: OFF
[2019-03-08 08:54] LABS: Cardiac Risk 2.7 (Less than 4.5)
[2019-03-08] MEDS: Aspirin Chewable 81 MG TAB PO SCH (09:42)
[2019-03-08] MEDS: Famotidine 20 MG TAB PO SCH ×2 (09:42→20:01)
[2019-03-08] MEDS: Thiamine 100 MG TAB PO SCH (09:42)
[2019-03-08] MEDS: Multivitamin W/ Minerals 1 TAB PO SCH (09:42)
[2019-03-08] MEDS: Magnesium Oxide 400 MG TAB PO SCH (09:42)
[2019-03-08] MEDS: Folic Acid 1 MG TAB PO SCH (09:42)
[2019-03-08] MEDS: Enoxaparin Sodium 40 MG/0.4 ML SYRINGE SC SCH (09:43)
[2019-03-08] MEDS: Amiodarone 450 MG in Dextrose 5% in Water 250 ML IVPB SCH (09:52)
--- NOTE | 2019-03-08 09:54 | EKG ---
Test Reason : Blood Pressure : / mmHG Vent. Rate : 103 BPM Atrial Rate : 103 BPM P-R Int : 124 ms QRS Dur : 080 ms QT Int : 374 ms P-R-T Axes : 080 263 -44 degrees QTc Int : 489 ms undetermined rhythm with some definite sinus beats with runs of tachycaria with bbb or possibly Kalyan tricular tach Biatrial enlargement Right superior axis deviation Pulmonary disease pattern Septal infarct , age undetermined possible inferior infarct Abnormal ECG No previous ECGs available Confirmed by DR. Bina BELTRAN ([id number]) on 03/08/2019 9:54:18 AM Referred By: CATHERINE Confirmed By:DR. Bina BELTRAN
--- NOTE | 2019-03-08 09:56 | EKG ---
Test Reason : Blood Pressure : / mmHG Vent. Rate : 105 BPM Atrial Rate : 117 BPM P-R Int : 112 ms QRS Dur : 080 ms QT Int : 398 ms P-R-T Axes : 079 260 048 degrees QTc Int : 526 ms sinus rhythm witm probable short runs of ventricular tachycardia Biatrial enlargement Indeterminate axis Pulmonary disease pattern Septal infarct (cited on or before 06-MAR-2019) Abnormal ECG When compared with ECG of 06-MAR-2019 23:32, (Unconfirmed) Fusion complexes are now Present Confirmed by DR. Bina BELTRAN ([id number]) on 03/08/2019 9:56:37 AM Referred By: Confirmed By:DR. Bina BELTRAN
--- NOTE | 2019-03-08 10:37 | EKG ---
Test Reason : Blood Pressure : / mmHG Vent. Rate : 102 BPM Atrial Rate : 102 BPM P-R Int : 114 ms QRS Dur : 084 ms QT Int : 378 ms P-R-T Axes : 079 247 -85 degrees QTc Int : 492 ms Sinus tachycardia with frequent Premature ventricular complexes in a pattern of bigeminy Biatrial enlargement Right superior axis deviation T wave abnormality, consider inferolateral ischemia Abnormal ECG Confirmed by СВЕТЛАНА BAZAN ([id number]), technical editor MARICARMEN MUNOZ ([id number]) on 03/08/2019 10:37:00 AM Referred By: Confirmed By:СВЕТЛАНА BAZAN
--- NOTE | 2019-03-08 12:18 | PDOC.PN ---
- Subjective Encounter Start Date: 03/08/19 Encounter Start Time: 12:15 Patient seen and examined, no family at bedside. - Objective Resuscitation Status - Order Detail: 03/06/19 22:27 Resuscitation Status Routine Co-Sign Provider: Resuscitation Status: FULL: Full Resuscitation Vital Signs & Weight: Vital Signs (12 hours) Temp Pulse Resp BP Pulse Ox 03/08/19 11:23 76 150/84 H 03/08/19 10:27 24 H 03/08/19 08:00 98.6 F 14 99 03/08/19 06:58 67 88/55 L 03/08/19 06:00 14 03/08/19 04:12 81 92/61 03/08/19 04:00 98.4 F 14 92/51 L 03/08/19 02:00 14 03/08/19 01:47 69 03/08/19 01:46 95 Weight Weight 130 lb 1 oz Most Recent Monitor Data Heart Rate from ECG 89 NIBP 127/105 NIBP BP-Mean 112 Respiration from ECG 19 SpO2 95 I&O: 03/07/19 03/08/19 03/09/19 06:59 06:59 06:59 Intake Total 634.4 271.1 0 Output Total 1475 2535 210 Balance -840.6 -2263.9 -210 Result Diagrams: 03/08/19 04:01 03/08/19 04:01 Phys Exam - Physical Examination Constitutional: NAD intubated HEENT: PERRLA intubated Neck: no nodes, no JVD, supple Respiratory: no wheezing coarse breath sounds Cardiovascular: RRR, no rub systolic faint murmur Gastrointestinal: soft, non-tender, no distention Musculoskeletal: pulses present, edema present (trace) Dx/Plan (1) Respiratory failure Code(s): J96.90 - RESPIRATORY FAILURE, UNSP, UNSP W HYPOXIA OR HYPERCAPNIA Status: Acute (2) Acute exacerbation of CHF (congestive heart failure) Code(s): I50.9 - HEART FAILURE, UNSPECIFIED Status: Acute Qualifiers: Heart failure type: unspecified Qualified Code(s): I50.9 - Heart failure, unspecified (3) Cocaine abuse Code(s): F14.10 - COCAINE ABUSE, UNCOMPLICATED Status: Acute (4) Alcohol abuse Code(s): F10.10 - ALCOHOL ABUSE, UNCOMPLICATED Status: Chronic (5) COPD (chronic obstructive pulmonary disease) Status: Chronic Qualifiers: COPD type: chronic bronchitis (6) Tobacco abuse Code(s): Z72.0 - TOBACCO USE Status: Chronic (7) V-tach Code(s): I47.2 - VENTRICULAR TACHYCARDIA Status: Suspected - Plan * intubated for airway protection yesterday, SBT and extubation defer to pulmonary team * cont with diuresis as tolerated * on amio drip * cardio and pulmonary following * overall prognosis is very poor given low EF and drug abuse * no family at bedside * appreciate input from subspecialists * no changes in plan of care for now from a medical perspective
--- NOTE | 2019-03-08 12:31 | PDOC.CTH ---
Cardiology Progress Note - Subjective He remains intubated and sedated. - Objective Vital Signs Temp Pulse Resp BP Pulse Ox 03/08/19 11:23 76 150/84 H 03/08/19 10:27 24 H 03/08/19 08:00 98.6 F 14 99 03/08/19 06:58 67 88/55 L 03/08/19 06:00 14 03/08/19 04:12 81 92/61 03/08/19 04:00 98.4 F 14 92/51 L 03/08/19 02:00 14 03/08/19 01:47 69 03/08/19 01:46 95 Weight 130 lb 1 oz 03/07/19 03/08/19 03/09/19 06:59 06:59 06:59 Intake Total 634.4 271.1 0 Output Total 1475 7115 210 Balance -840.6 -2263.9 -210 - Physical Examination General/Neuro: alert & oriented x3, NAD Neck: no JVD present Lungs: other: (reduced breath sounds. ) Heart: RRR Abdomen: NT/ND Extremities: other: (no edema) - Telemetry Telemetry Rhythm: NSR, PVC's - Labs Result Diagrams: 03/08/19 04:01 03/08/19 04:01 Troponin/CKMB Troponin I 0.014 ng/mL (< 0.028) 03/07/19 05:07 - Assessment/Plan 1. Non sustained VT 2. CAD 3. S/P BMS to LAD 4. Dilated CM EF at 20-25% 5. Acute on chronic systolic CHF 6. Substance abuse + cocaine on UDS PLAN: - Continue Amiodarone drip. - Continue Brilita and aspirin - Supportive care. - Statin for life.
[2019-03-08] MEDS ORDERED: TICAGRELOR 90 MG TABLET PO SCH (13:00)
[2019-03-08] MEDS: fentaNYL Citrate/PF 2,000 MCG in Sodium Chloride 0.9% 60 ML IV SCH (19:37)
[2019-03-08] MEDS: Ventilator Sedation Protocol 1 EACH FS SCH (19:46)
[2019-03-08] MEDS: TICAGRELOR 90 MG TABLET PO SCH (20:01)
[2019-03-09] MEDS: Amiodarone 450 MG in Dextrose 5% in Water 250 ML IVPB SCH ×2 (00:30→15:26)
[2019-03-09 06:01] LABS: Anion Gap 13 mmol/L (10-20); BUN (Urea Nitrogen) 13 mg/dL (8.4-25.7); Calc. Creatinine Clearance 68 mL/min (70-130); Calcium 8.6 mg/dL (7.8-10.44); Carbon Dioxide 27 mmol/L (23-31); Chloride 101 mmol/L (98-107); Estimated GFR-MDRD Greater than 90; Glucose 99 mg/dL (80-115); Sodium 137 mmol/L (136-145)
[2019-03-09 06:49] LABS: Actual Bicarbonate (HCO3a) 26.6 mEq/L (22-28); Base Excess (BEa) 0.5 mEq/L (-2.0 to +3.0); Calcium, Ionized 1.16 mmol/L (1.12-1.30); Carboxyhemoglobin (COHb) 1.6 gm% (0.0-3.0); Hemoglobin (Hb) 13.2 g/dL (14.0-18.0); O2 Tension (PaO2) 96.4 mmHg (> 80.0); Potassium - ABG Lab 3.99 mmol/L (3.70-5.30); pH, Arterial 7.35 (7.35-7.45)
[2019-03-09 06:54] LABS: Puncture Site LRA
[2019-03-09] MEDS ORDERED: DC Sedation Protocol FS ONE (07:39)
--- NOTE | 2019-03-09 08:01 | RAD ---
PORTABLE CHEST: HISTORY: Pneumonia. COMPARISON: 03/08/2019. FINDINGS: Lungs appear well aerated and clear. No definite infiltrate seen. NG tube and ET tube remain in nimesh ce. IMPRESSION: No significant change from yesterday. POS: OFF
--- NOTE | 2019-03-09 08:17 | PRG ---
DATE OF SERVICE: 03/09/2019 35 minutes of critical care time. SUBJECTIVE: The patient remains intubated on mechanical ventilation. He is on minimal sedation. He will wake up and follows commands, and is in no visible distress. OBJECTIVE: VITAL SIGNS: His temperature is 98.5, pulse 70, blood pressure 118/67, O2 saturation 97%, a 24-hour intake 808, output 1305. HEENT: Unremarkable. NECK: No JVD. CARDIAC: S1, S2 regular without ectopy. LUNGS: Clear. ABDOMEN: Soft, nontender. EXTREMITIES: No edema. IMAGING DATA: His chest x-ray is clear. LABORATORY DATA: PH 7.35, pCO2 of 49, pO2 of 96 on SIMV rate 8, tidal volume 500, PEEP 5, pressure support 10, FiO2 40%. Sodium 137, potassium 4, chloride 101, CO2 of 27, BUN 13, creatinine 0.8, glucose 99. ASSESSMENT: 1. Acute systolic heart failure with pulmonary edema. 2. Acute respiratory failure secondary to heart failure. PLAN: He will be extubated and observed. His sedation has been stopped. He will be monitored in CCU today. Job ID: [id number]
[2019-03-09] MEDS: Thiamine 100 MG TAB PO SCH (08:27)
[2019-03-09] MEDS: Enoxaparin Sodium 40 MG/0.4 ML SYRINGE SC SCH (08:27)
[2019-03-09] MEDS: Magnesium Oxide 400 MG TAB PO SCH (08:28)
[2019-03-09] MEDS: Multivitamin W/ Minerals 1 TAB PO SCH (08:28)
[2019-03-09] MEDS: TICAGRELOR 90 MG TABLET PO SCH ×2 (08:28→20:11)
[2019-03-09] MEDS: Folic Acid 1 MG TAB PO SCH (08:28)
[2019-03-09] MEDS: Aspirin Chewable 81 MG TAB PO SCH (08:28)
[2019-03-09] MEDS: Famotidine 20 MG TAB PO SCH ×2 (08:28→20:11)
--- NOTE | 2019-03-09 09:27 | EKG ---
Test Reason : Blood Pressure : / mmHG Vent. Rate : 059 BPM Atrial Rate : 059 BPM P-R Int : 142 ms QRS Dur : 082 ms QT Int : 476 ms P-R-T Axes : 067 248 -78 degrees QTc Int : 471 ms Sinus bradycardia Right superior axis deviation Septal infarct (cited on or before 06-MAR-2019) Abnormal ECG When compared with ECG of 07-MAR-2019 02:35, Previous ECG has undetermined rhythm, needs review Serial changes of Septal infarct Present Confirmed by DR. Bina BELTRAN ([id number]) on 03/09/2019 9:26:44 AM Referred By: YA Confirmed By:DR. Bina BELTRAN
--- NOTE | 2019-03-09 09:28 | EKG ---
Test Reason : AM EKG Blood Pressure : / mmHG Vent. Rate : 073 BPM Atrial Rate : 073 BPM P-R Int : 130 ms QRS Dur : 080 ms QT Int : 490 ms P-R-T Axes : 072 228 -75 degrees QTc Int : 539 ms Sinus rhythm with occasional Premature atrial complexes Indeterminate axis Septal infarct (cited on or before 06-MAR-2019) T wave abnormality, consider inferior ischemia Prolonged QT Abnormal ECG When compared with ECG of 07-MAR-2019 16:14, (Unconfirmed) Premature ventricular complexes are now Present Serial changes of Septal infarct Present Confirmed by DR. Bina BELTRAN ([id number]) on 03/09/2019 9:28:36 AM Referred By: Junior MUHAMMAD Confirmed By:DR. Bina BELTRAN
--- NOTE | 2019-03-09 11:57 | PDOC.PN ---
- Subjective Encounter Start Date: 03/09/19 Encounter Start Time: 11:55 Patient seen and examined, no new issues or complaints. - Objective Resuscitation Status - Order Detail: 03/06/19 22:27 Resuscitation Status Routine Co-Sign Provider: Resuscitation Status: FULL: Full Resuscitation Vital Signs & Weight: Vital Signs (12 hours) Temp Pulse Resp BP Pulse Ox 03/09/19 10:58 98.7 F 03/09/19 08:00 98 03/09/19 07:48 119/69 03/09/19 07:40 75 20 98 03/09/19 07:00 98.5 F 03/09/19 06:41 66 108/62 03/09/19 06:00 12 03/09/19 04:00 98.8 F 22 H 106/62 03/09/19 03:08 66 94/61 03/09/19 02:00 12 03/09/19 01:45 66 03/09/19 00:00 98.8 F 20 107/57 L Weight Admit Weight 130 lb 0.96 oz Weight 130 lb 0.96 oz Most Recent Monitor Data Heart Rate from ECG 77 NIBP 155/101 NIBP BP-Mean 119 Respiration from ECG 23 SpO2 100 I&O: 03/08/19 03/09/19 03/10/19 06:59 06:59 06:59 Intake Total 271.1 808.1 Output Total 2535 1305 155 Balance -2263.9 -496.9 -155 Result Diagrams: 03/08/19 04:01 03/09/19 05:30 Phys Exam - Physical Examination Constitutional: NAD HEENT: PERRLA, moist MMs, sclera anicteric Neck: no nodes, no JVD, supple Respiratory: no wheezing, no rales, no rhonchi Cardiovascular: RRR, no rub systolic murmur Gastrointestinal: soft, non-tender, no distention Musculoskeletal: no edema, pulses present Dx/Plan (1) Respiratory failure Code(s): J96.90 - RESPIRATORY FAILURE, UNSP, UNSP W HYPOXIA OR HYPERCAPNIA Status: Acute (2) Acute exacerbation of CHF (congestive heart failure) Code(s): I50.9 - HEART FAILURE, UNSPECIFIED Status: Acute Qualifiers: Heart failure type: unspecified Qualified Code(s): I50.9 - Heart failure, unspecified (3) Cocaine abuse Code(s): F14.10 - COCAINE ABUSE, UNCOMPLICATED Status: Acute (4) Alcohol abuse Code(s): F10.10 - ALCOHOL ABUSE, UNCOMPLICATED Status: Chronic (5) COPD (chronic obstructive pulmonary disease) Status: Chronic Qualifiers: COPD type: chronic bronchitis (6) Tobacco abuse Code(s): Z72.0 - TOBACCO USE Status: Chronic (7) V-tach Code(s): I47.2 - VENTRICULAR TACHYCARDIA Status: Suspected - Plan * successfully extubated earlier this AM and doing well * on amio drip, cardio following, likely switch to oral today? * BP stable * HR stable * patient advised to stop doing drugs * overall fdc poor prognosis if patient doesn't stop doing drugs * monitor in ICU for next 24 hours, can likely transfer out in AM * appreciate subspecialist input * case and plan d/w patient at length, he understood and agreed with this plan.
--- NOTE | 2019-03-09 15:39 | PDOC.CTH ---
Cardiology Progress Note - Subjective He is extubated now, doing much better. Not agitated at all. - Objective Vital Signs Temp Pulse Resp BP Pulse Ox 03/09/19 15:00 98.6 F 03/09/19 13:59 76 19 03/09/19 12:00 166/95 H 03/09/19 10:58 98.7 F 03/09/19 08:00 98 03/09/19 07:48 119/69 03/09/19 07:40 75 20 98 03/09/19 07:00 98.5 F 03/09/19 06:41 66 108/62 03/09/19 06:00 12 03/09/19 04:00 98.8 F 22 H 106/62 Admit Weight 130 lb 0.96 oz Weight 130 lb 0.96 oz 03/08/19 03/09/19 03/10/19 06:59 06:59 06:59 Intake Total 271.1 808.1 Output Total 2535 1305 355 Balance -2263.9 -496.9 -355 - Physical Examination General/Neuro: alert & oriented x3, NAD Neck: no JVD present Lungs: CTA, unlabored respirations Heart: RRR Abdomen: NT/ND Extremities: other: (no edema.) - Telemetry Telemetry Rhythm: NSR - Labs Result Diagrams: 03/08/19 04:01 03/09/19 05:30 Troponin/CKMB Troponin I 0.014 ng/mL (< 0.028) 03/07/19 05:07 - Assessment/Plan 1. Non sustained VT 2. CAD 3. S/P BMS to LAD 4. Dilated CM EF at 20-25% 5. Acute on chronic systolic CHF 6. Substance abuse + cocaine on UDS PLAN: - Continue Amiodarone drip. His VT responds well to this. - Continue Brilinta and aspirin 81 for a total of one month minimum. - Statin for life. - May transfer to floor tomorrow if remains stable.
[2019-03-09] MEDS: Ventilator Sedation Protocol 1 EACH FS SCH (19:36)
[2019-03-10 04:51] LABS: Anion Gap 12 mmol/L (10-20); BUN (Urea Nitrogen) 12 mg/dL (8.4-25.7); Calc. Creatinine Clearance 80 mL/min (70-130); Carbon Dioxide 25 mmol/L (23-31); Chloride 101 mmol/L (98-107); Estimated GFR-MDRD Greater than 90; Glucose 118 mg/dL (80-115); Potassium 4.2 mmol/L (3.5-5.1); Sodium 134 mmol/L (136-145)
[2019-03-10] MEDS: Amiodarone 450 MG in Dextrose 5% in Water 250 ML IVPB SCH (06:27)
[2019-03-10] MEDS: Furosemide 40 MG/4 ML VIAL SLOW IVP SCH (07:52)
[2019-03-10] MEDS: Famotidine 20 MG TAB PO SCH (08:59)
[2019-03-10] MEDS: Folic Acid 1 MG TAB PO SCH (08:59)
[2019-03-10] MEDS: Thiamine 100 MG TAB PO SCH (08:59)
[2019-03-10] MEDS: Magnesium Oxide 400 MG TAB PO SCH (08:59)
[2019-03-10] MEDS: Multivitamin W/ Minerals 1 TAB PO SCH (08:59)
[2019-03-10] MEDS: Enoxaparin Sodium 40 MG/0.4 ML SYRINGE SC SCH (08:59)
[2019-03-10] MEDS: TICAGRELOR 90 MG TABLET PO SCH ×2 (08:59→19:45)
[2019-03-10] MEDS: Aspirin Chewable 81 MG TAB PO SCH (08:59)
--- NOTE | 2019-03-10 10:05 | PRG ---
DATE OF SERVICE: 03/10/2019 SERVICE: Pulmonary Medicine. INTERVAL HISTORY: The patient is doing really well from respiratory standpoint. He is breathing comfortably. He has no complaints of chest pain, fevers, chills, nausea, vomiting, or diarrhea. His breathing is essentially back to normal. His strength has improved. PHYSICAL EXAMINATION: VITAL SIGNS: Afebrile, pulse 80, blood pressure 131/69, respirations 26, saturation 100% on 3 L nasal cannula. GENERAL: The patient is awake and alert, in no apparent distress. LUNGS: Reduced air entry. There is a prolonged expiratory phase as well as a polyphonic wheezing. Dependent crackles are still present. HEART: Normal rate and regular. ABDOMEN: Soft, nontender, and nondistended. Bowel sounds are positive. MUSCULOSKELETAL: No cyanosis or clubbing. The previous edema has resolved. NEUROLOGIC: Grossly nonfocal. LABORATORY DATA: WBC 6.1, hemoglobin 12.5, platelets 231,000 and roughly stable. Basic metabolic profile is essentially unremarkable. Cocaine is positive on the urine drug screen. ASSESSMENT: 1. Acute hypoxic respiratory failure, improving. 2. Acute on chronic systolic heart failure. 3. Chronic obstructive pulmonary disease without exacerbation. 4. Polysubstance drug abuse. 5. Ventricular tachycardia, returned to sinus rhythm on amiodarone drip. DISCUSSION AND PLAN: The patient has been stable from respiratory and cardiovascular standpoint for the last couple of days. We will continue to diurese him to euvolemia. At this point, he can be transitioned to the telemetry unit. Pulmonary will continue to follow along for now. I have a low threshold for treating a COPD exacerbation as he has no known obstructive lung disease. Job ID: [id number] [facility]
--- NOTE | 2019-03-10 16:04 | PDOC.CTH ---
Cardiology Progress Note - Subjective Doing much better. No more VT. Amiodarone has been discontinued. - Objective Vital Signs Temp Pulse Resp BP Pulse Ox 03/10/19 13:49 81 31 H 94 L 03/10/19 11:49 98.9 F 03/10/19 11:42 131/76 03/10/19 08:28 73 28 H 96 03/10/19 08:00 98.3 F 97 Admit Weight 130 lb 0.96 oz Weight 130 lb 0.96 oz 03/09/19 03/10/19 03/11/19 06:59 06:59 06:59 Intake Total 808.1 1088 480 Output Total 1305 2405 1575 Balance -496.9 -7983 -1098 - Physical Examination General/Neuro: alert & oriented x3, NAD Neck: no JVD present Lungs: CTA, unlabored respirations Heart: RRR Abdomen: NT/ND Extremities: other: (no edema) - Telemetry Telemetry Rhythm: NSR - Labs Result Diagrams: 03/08/19 04:01 03/10/19 04:19 Troponin/CKMB Troponin I 0.014 ng/mL (< 0.028) 03/07/19 05:07 - Assessment/Plan 1. Non sustained VT 2. CAD 3. S/P BMS to LAD 4. Dilated CM EF at 20-25% 5. Acute on chronic systolic CHF 6. Substance abuse + cocaine on UDS PLAN: - Likely VT due to anterior ischemia and cocaine use and better now after stenting. - Counselled on substance abuse cessation. - Has a chronically occluded LCx, likley large lateral scar. If he continues to have VT will need VT ablation. - We spoke about lifevest but he is not interested. - Continue Brilinta and aspirin 81 for a total of one month minimum. - Statin for life. - He may be discharged from hospital tomorrow if he remians stable.
--- NOTE | 2019-03-10 16:12 | PDOC.CTH ---
Cardiology Progress Note - Subjective EP progress note 03/10/19 Pt doinig better over weekend. Still on IV amiodarone, but no recurrent VT episodes. - Objective Vital Signs Temp Pulse Resp BP Pulse Ox 03/10/19 16:00 98.4 F 136/82 03/10/19 13:49 81 31 H 94 L 03/10/19 11:49 98.9 F 03/10/19 11:42 131/76 03/10/19 08:28 73 28 H 96 03/10/19 08:00 98.3 F 97 Admit Weight 130 lb 0.96 oz Weight 130 lb 0.96 oz 03/09/19 03/10/19 03/11/19 06:59 06:59 06:59 Intake Total 808.1 1088 480 Output Total 1305 2405 1575 Balance -496.9 -1317 1095 - Physical Examination General/Neuro: alert & oriented x3, NAD Neck: no JVD present Lungs: CTA Heart: RRR Abdomen: no HSM, NT/ND, soft - Telemetry Telemetry Rhythm: SR, rare PVC. No VT - Labs Result Diagrams: 03/08/19 04:01 03/10/19 04:19 Troponin/CKMB Troponin I 0.014 ng/mL (< 0.028) 03/07/19 05:07 - Assessment/Plan 1. Recurrent/self terminating VT tuns, in the setting of myocardial ischemia. Improved with stenting and amidoarone over weekend. 2. Subacute OH. 3. Likley ischemic cardiomyopathy. Reduced LVEF 4. H/o cocain abuse 5. COPD/smoking Plan to stop amidarone now hence the lack of ventricular arrhythmia and poor nursing home candidacy for this drug. routine post OH/stent care. Conisder ICD if LVEF does not improve 90 post stent.
--- NOTE | 2019-03-10 16:58 | PDOC.PN ---
- Subjective Encounter Start Date: 03/10/19 Encounter Start Time: 16:56 Subjective: no new complaints.no CP/SOB - Objective Resuscitation Status - Order Detail: 03/06/19 22:27 Resuscitation Status Routine Co-Sign Provider: Resuscitation Status: FULL: Full Resuscitation MAR Reviewed: Yes Vital Signs & Weight: Vital Signs (12 hours) Temp Pulse Resp BP Pulse Ox 03/10/19 16:00 98.4 F 136/82 03/10/19 13:49 81 31 H 94 L 03/10/19 11:49 98.9 F 03/10/19 11:42 131/76 03/10/19 08:28 73 28 H 96 03/10/19 08:00 98.3 F 97 Weight Admit Weight 130 lb 0.96 oz Weight 130 lb 0.96 oz Most Recent Monitor Data Heart Rate from ECG 84 NIBP 136/82 NIBP BP-Mean 100 Respiration from ECG 33 SpO2 97 I&O: 03/09/19 03/10/19 03/11/19 06:59 06:59 06:59 Intake Total 808.1 1088 480 Output Total 1305 2405 1575 Balance -496.9 -1317 -1095 Result Diagrams: 03/08/19 04:01 03/10/19 04:19 Additional Labs: Laboratory Tests 03/06/19 23:30 U Cocaine Metab Screen Detected H Phys Exam - Physical Examination Constitutional: NAD HEENT: PERRLA, moist MMs, sclera anicteric, TM's clear, oral pharynx no lesions , 2+ tonsils Neck: no nodes, no JVD, supple, full ROM Respiratory: no wheezing, no rales, no rhonchi, clear to auscultation bilateral Cardiovascular: RRR, no significant murmur, no rub Gastrointestinal: soft, non-tender, no distention, positive bowel sounds Musculoskeletal: no edema, pulses present Neurological: non-focal, normal sensation, moves all 4 limbs Psychiatric: normal affect, A&O x 3 Skin: no rash, normal turgor, cap refill <2 seconds Dx/Plan (1) V-tach Code(s): I47.2 - VENTRICULAR TACHYCARDIA Status: Suspected Comment: On Amiodarone drip. Stopped today d/t CAD.s/p SOFI to LAD.EP and cardiology following as well (2) Acute exacerbation of CHF (congestive heart failure) Code(s): I50.9 - HEART FAILURE, UNSPECIFIED Status: Acute Qualifiers: Heart failure type: unspecified Qualified Code(s): I50.9 - Heart failure, unspecified Comment: improved.will start aldactone given low EF (3) Cocaine abuse Code(s): F14.10 - COCAINE ABUSE, UNCOMPLICATED Status: Acute (4) Alcohol abuse Code(s): F10.10 - ALCOHOL ABUSE, UNCOMPLICATED Status: Chronic Comment: [facility] protocol (5) COPD (chronic obstructive pulmonary disease) Status: Chronic Qualifiers: COPD type: chronic bronchitis Comment: stable (6) Tobacco abuse Code(s): Z72.0 - TOBACCO USE Status: Chronic (7) Ischemic cardiomyopathy Code(s): I25.5 - ISCHEMIC CARDIOMYOPATHY Status: Chronic Comment: s/p SOFI to LAD.cont ASA,statin,Brilinta - Plan incentive spirometry, out of bed/ambulate, DVT proph w/SCDs cont LV. add aldactone -: avoid BB due to cocaine abuse.counselled extensively -: add low dose PRISCILLA-I -: Anti arrythmic per EP and cardiology -: HD stable.am labs.transfer to tele * . Review of Systems - Review of Systems Constitutional: weakness, malaise ENT: negative: Ear Pain, Ear Discharge, Nose Pain, Nose Discharge, Nose Congestion, Mouth Pain, Mouth Swelling, Throat Pain, Throat Swelling, Other Respiratory: negative: Cough, Dry, Shortness of Breath, Hemoptysis, SOB with Excertion, Pleuritic Pain, Sputum, Wheezing Cardiovascular: negative: chest pain, palpitations, orthopnea, paroxysmal nocturnal dyspnea, edema, light headedness, other Gastrointestinal: negative: Nausea, Vomiting, Abdominal Pain, Diarrhea, Constipation, Melena, Hematochezia, Other Genitourinary: negative: Dysuria, Frequency, Incontinence, Hematuria, Retention , Other Musculoskeletal: negative: Neck Pain, Shoulder Pain, Arm Pain, Back Pain, Hand Pain, Leg Pain, Foot Pain, Other Neurological: negative: Weakness, Numbness, Incoordination, Change in Speech, Confusion, Seizures, Other - Medications/Allergies Allergies/Adverse Reactions: Allergies Allergy/AdvReac Type Severity Reaction Status Date / Time No Known Allergies Allergy Verified 03/06/19 18:19 Medications: Current Medications Acetaminophen (Tylenol) 650 mg PO Q4H PRN PRN Reason: Headache/Fever/Mild Pain (1-3) Last Admin: 03/10/19 06:42 Dose: 650 mg Albuterol Sulfate (Proventil Hfa) 2 puff INH Q4HR PRN PRN Reason: SOB &/or Wheezing Albuterol/Ipratropium (Duoneb) 3 ml NEB Q6HR ON [facility] Last Admin: 03/10/19 13:49 Dose: 3 ml Aspirin (Aspirin Chewable) 81 mg PO DAILY [facility] Last Admin: 03/10/19 08:59 Dose: 81 mg Enoxaparin Sodium (Lovenox) 40 mg SC 0900 [facility] Last Admin: 03/10/19 08:59 Dose: 40 mg Folic Acid (Folvite) 1 mg PO DAILY [facility] Last Admin: 03/10/19 08:59 Dose: 1 mg Iron/Minerals/Multivitamins (Theragran M) 1 tab PO DAILY [facility] Last Admin: 03/10/19 08:59 Dose: 1 tab Magnesium Oxide (Magnesium Oxide) 400 mg PO DAILY [facility] Last Admin: 03/10/19 08:59 Dose: 400 mg Miscellaneous (Ase Protocol) 1 each FS ONE [facility] Stop: 03/17/19 00:16 Ondansetron HCl (Zofran) 4 mg IVP Q6H PRN PRN Reason: Nausea/Vomiting Sodium Chloride (Flush - Normal Saline) 10 ml IVF Q12HR ON [facility] Last Admin: 03/10/19 09:00 Dose: 10 ml Sodium Chloride (Flush - Normal Saline) 10 ml IVF PRN PRN PRN Reason: Saline Flush Thiamine HCl (Thiamine) 100 mg PO DAILY [facility] Last Admin: 03/10/19 08:59 Dose: 100 mg Ticagrelor (Brilinta) 90 mg PO BID [facility] Last Admin: 03/10/19 08:59 Dose: 90 mg
[2019-03-10] MEDS ORDERED: Spironolactone 25 MG TAB PO SCH (17:15)
[2019-03-10] MEDS: Lisinopril 5 MG TAB PO SCH (19:45)
[2019-03-11] MEDS: Magnesium Oxide 400 MG TAB PO SCH (08:29)
[2019-03-11] MEDS: Lisinopril 5 MG TAB PO SCH ×2 (08:29→20:26)
[2019-03-11] MEDS: Thiamine 100 MG TAB PO SCH (08:30)
[2019-03-11] MEDS: Folic Acid 1 MG TAB PO SCH (08:30)
[2019-03-11] MEDS: Spironolactone 25 MG TAB PO SCH (08:30)
[2019-03-11] MEDS: TICAGRELOR 90 MG TABLET PO SCH ×2 (08:30→20:26)
[2019-03-11] MEDS: Multivitamin W/ Minerals 1 TAB PO SCH (08:31)
[2019-03-11] MEDS: Aspirin Chewable 81 MG TAB PO SCH (08:31)
[2019-03-11] MEDS: Enoxaparin Sodium 40 MG/0.4 ML SYRINGE SC SCH (08:38)
[2019-03-11 12:40] VITALS: BMI 19.5
--- NOTE | 2019-03-11 12:51 | PDOC.CTH ---
Cardiology Progress Note - Subjective EP progress note: 03/11/19 Pt doing better over weekend. Amiodarone has been stopped, but no recurrent VT episodes. Ambulating in room during exam. No complaints or concerns this AM - Objective Vital Signs Temp Pulse Resp BP BP BP Pulse Ox 03/11/19 08:29 76 03/11/19 07:53 98.5 F 86 18 126/69 91 L 03/11/19 07:17 94 L 03/11/19 07:16 84 16 94 L 03/11/19 04:00 114/59 L 03/11/19 03:07 99.0 F 85 18 114/59 L 93 L Admit Weight 130 lb 0.96 oz Weight 120 lb 12.8 oz 03/10/19 03/11/19 03/12/19 06:59 06:59 06:59 Intake Total 1088 840 Output Total 2405 5 Balance -2791 -8554 - Physical Examination General/Neuro: alert & oriented x3, NAD Neck: carotid US brisk, no JVD present Lungs: CTA, unlabored respirations Heart: PMI normal, RRR Abdomen: NT/ND, soft - Telemetry Telemetry Rhythm: SR - Labs Result Diagrams: 03/08/19 04:01 03/10/19 04:19 Troponin/CKMB Troponin I 0.014 ng/mL (< 0.028) 03/07/19 05:07 - Assessment/Plan 1. Recurrent/self terminating VT tuns, in the setting of myocardial ischemia. -Improved with stenting and amiodarone over weekend. 2. Subacute WI. 3. Likley ischemic cardiomyopathy. Reduced LVEF 4. Cocaine abuse + screen this visit 5. COPD/smoking Amiodarone has been stopped. Rhythm stable. Recommend re-evaluated LVEF, 3 months from PCI to see if he is an ICD candidate. That being said, he will need to stop his cocaine use and attest to him having stopped this drug before ICD implant could seriously be considered. Discussed the likelihood of ICD shocks with continued cocaine abuse.
--- NOTE | 2019-03-11 13:03 | PRG ---
DATE OF SERVICE: 03/11/2019 SERVICE: Pulmonary Medicine. INTERVAL HISTORY: The patient is doing fine from respiratory standpoint. There has been no interval change to his condition. Denies any current chest pain, fevers , cough, sputum production. Otherwise, he feels like he has returned to his usual state of health. He is able to ambulate the hallways without difficulties. PHYSICAL EXAMINATION: VITAL SIGNS: Afebrile, pulse 86, blood pressure 126/69, respirations 18, saturation 91% on room air. GENERAL: The patient is awake and alert, in no apparent distress. LUNGS: Reduced air entry with a prolonged expiratory phase, but I do not appreciate any adventitious sounds, wheezing, rhonchi, or crackles. HEART: Normal rate, regular. ABDOMEN: Soft, nontender, nondistended. Bowel sounds are positive. MUSCULOSKELETAL: No cyanosis or clubbing. No pitting in the bilateral lower extremities. NEUROLOGIC: Grossly nonfocal. ASSESSMENT: 1. Acute hypoxic respiratory failure, resolved. 2. Acute on chronic systolic heart failure. 3. Polysubstance drug abuse. 4. Chronic hypoxic respiratory failure without acute exacerbation. 5. Ventricular tachycardia, returned to sinus rhythm on amiodarone. DISCUSSION AND PLAN: From a purely respiratory perspective, the patient has returned to baseline. He has no further requirements for inpatient Pulmonary or Critical Care opinion. As such, I will sign off. He will need to resume his home inhalers on discharge from the hospital. If he still inclined, he can follow up with me in the outpatient setting. Job ID: [id number] MTDD
--- NOTE | 2019-03-11 14:32 | PDOC.PN ---
- Subjective Encounter Start Date: 03/11/19 Encounter Start Time: 14:30 Subjective: feels well. no CP/SOB/palpiations -: discussed lifevest and he would like to try it -: discussed drug abuse and he says that he will quit - Objective Resuscitation Status - Order Detail: 03/06/19 22:27 Resuscitation Status Routine Co-Sign Provider: Resuscitation Status: FULL: Full Resuscitation MAR Reviewed: Yes Vital Signs & Weight: Vital Signs (12 hours) Temp Pulse Resp BP BP BP Pulse Ox 03/11/19 12:57 82 20 90 L 03/11/19 12:00 98.1 F 82 22 H 117/65 94 L 03/11/19 08:29 76 03/11/19 07:53 98.5 F 86 18 126/69 91 L 03/11/19 07:17 94 L 03/11/19 07:16 84 16 94 L 03/11/19 04:00 114/59 L 03/11/19 03:07 99.0 F 85 18 114/59 L 93 L Weight Admit Weight 130 lb 0.96 oz Weight 120 lb 12.8 oz Most Recent Monitor Data Heart Rate from ECG 84 NIBP 156/93 NIBP BP-Mean 114 Respiration from ECG 31 SpO2 100 I&O: 03/10/19 03/11/19 03/12/19 06:59 06:59 06:59 Intake Total 1088 840 Output Total 2405 2025 Balance -1317 -5918 Result Diagrams: 03/08/19 04:01 03/10/19 04:19 Additional Labs: Laboratory Tests 03/08/19 04:01 Triglycerides 85 Cholesterol 120 LDL Cholesterol, Calc 59 HDL Cholesterol 44 Phys Exam - Physical Examination Constitutional: NAD HEENT: PERRLA, moist MMs, sclera anicteric, oral pharynx no lesions Neck: no nodes, no JVD, supple, full ROM Respiratory: no wheezing, no rales, no rhonchi, clear to auscultation bilateral Cardiovascular: RRR, no significant murmur Gastrointestinal: soft, non-tender, no distention, positive bowel sounds Musculoskeletal: no edema, pulses present Neurological: non-focal, normal sensation, moves all 4 limbs Psychiatric: normal affect, A&O x 3 Skin: no rash Dx/Plan (1) V-tach Code(s): I47.2 - VENTRICULAR TACHYCARDIA Status: Suspected Comment: On Amiodarone drip. Stopped today d/t CAD.s/p SOFI to LAD.EP and cardiology following as well (2) Acute exacerbation of CHF (congestive heart failure) Code(s): I50.9 - HEART FAILURE, UNSPECIFIED Status: Acute Qualifiers: Heart failure type: unspecified Qualified Code(s): I50.9 - Heart failure, unspecified Comment: improved.will start aldactone given low EF (3) Cocaine abuse Code(s): F14.10 - COCAINE ABUSE, UNCOMPLICATED Status: Acute (4) Alcohol abuse Code(s): F10.10 - ALCOHOL ABUSE, UNCOMPLICATED Status: Chronic Comment: [facility] protocol (5) COPD (chronic obstructive pulmonary disease) Status: Chronic Qualifiers: COPD type: chronic bronchitis Comment: stable (6) Tobacco abuse Code(s): Z72.0 - TOBACCO USE Status: Chronic (7) Ischemic cardiomyopathy Code(s): I25.5 - ISCHEMIC CARDIOMYOPATHY Status: Chronic Comment: s/p SOFI to LAD.cont ASA,statin,Brilinta,PRISCILLA-I,aldactone - Plan out of bed/ambulate, DVT proph w/SCDs HD stable -: cardiology to discuss lifevest -: calli refer to OP Heart failure clinic and OP cardiac rehab -: Otherwise OK to Dc if no lifevest recommeneded * . Review of Systems - Review of Systems Constitutional: negative: fever, chills, sweats, weakness, malaise, other ENT: negative: Ear Pain, Ear Discharge, Nose Pain, Nose Discharge, Nose Congestion, Mouth Pain, Mouth Swelling, Throat Pain, Throat Swelling, Other Respiratory: negative: Cough, Dry, Shortness of Breath, Hemoptysis, SOB with Excertion, Pleuritic Pain, Sputum, Wheezing Cardiovascular: negative: chest pain, palpitations, orthopnea, paroxysmal nocturnal dyspnea, edema, light headedness, other Gastrointestinal: negative: Nausea, Vomiting, Abdominal Pain, Diarrhea, Constipation, Melena, Hematochezia, Other Genitourinary: negative: Dysuria, Frequency, Incontinence, Hematuria, Retention , Other Musculoskeletal: negative: Neck Pain, Shoulder Pain, Arm Pain, Back Pain, Hand Pain, Leg Pain, Foot Pain, Other Skin: negative: Rash, Lesions, Timmy, Bruising, Other Neurological: negative: Weakness, Numbness, Incoordination, Change in Speech, Confusion, Seizures, Other - Medications/Allergies Allergies/Adverse Reactions: Allergies Allergy/AdvReac Type Severity Reaction Status Date / Time No Known Allergies Allergy Verified 03/06/19 18:19 Medications: Current Medications Acetaminophen (Tylenol) 650 mg PO Q4H PRN PRN Reason: Headache/Fever/Mild Pain (1-3) Last Admin: 03/10/19 06:42 Dose: 650 mg Albuterol Sulfate (Proventil Hfa) 2 puff INH Q4HR PRN PRN Reason: SOB &/or Wheezing Albuterol/Ipratropium (Duoneb) 3 ml NEB Q6HR [facility] Last Admin: 03/11/19 12:57 Dose: 3 ml Aspirin (Aspirin Chewable) 81 mg PO DAILY [facility] Last Admin: 03/11/19 08:31 Dose: 81 mg Atorvastatin Calcium (Lipitor) 40 mg PO [facility] Enoxaparin Sodium (Lovenox) 40 mg SC 0900 [facility] Last Admin: 03/11/19 08:38 Dose: 40 mg Folic Acid (Folvite) 1 mg PO DAILY [facility] Last Admin: 03/11/19 08:30 Dose: 1 mg Iron/Minerals/Multivitamins (Theragran M) 1 tab PO DAILY [facility] Last Admin: 03/11/19 08:31 Dose: 1 tab Lisinopril (Zestril) 5 mg PO BID [facility] Last Admin: 03/11/19 08:29 Dose: 5 mg Magnesium Oxide (Magnesium Oxide) 400 mg PO DAILY [facility] Last Admin: 03/11/19 08:29 Dose: 400 mg Miscellaneous (Ase Protocol) 1 each FS ONE [facility] Stop: 03/17/19 00:16 Ondansetron HCl (Zofran) 4 mg IVP Q6H PRN PRN Reason: Nausea/Vomiting Sodium Chloride (Flush - Normal Saline) 10 ml IVF Q12HR [facility] Last Admin: 03/11/19 13:22 Dose: 10 ml Sodium Chloride (Flush - Normal Saline) 10 ml IVF PRN PRN PRN Reason: Saline Flush Spironolactone (Aldactone) 12.5 mg PO QAM-WM [facility] Last Admin: 03/11/19 08:30 Dose: 12.5 mg Thiamine HCl (Thiamine) 100 mg PO DAILY [facility] Last Admin: 03/11/19 08:30 Dose: 100 mg Ticagrelor (Brilinta) 90 mg PO BID [facility] Last Admin: 03/11/19 08:30 Dose: 90 mg
--- NOTE | 2019-03-11 18:38 | PDOC.CTH ---
Cardiology Progress Note - Subjective He is doing well. No more VT. - Objective Vital Signs Temp Pulse Resp BP BP BP Pulse Ox 03/11/19 16:00 98.5 F 89 16 124/82 124/82 93 L 03/11/19 12:57 82 20 90 L 03/11/19 12:00 98.1 F 82 22 H 117/65 94 L 03/11/19 08:29 76 03/11/19 07:53 98.5 F 86 18 126/69 91 L 03/11/19 07:17 94 L 03/11/19 07:16 84 16 94 L Admit Weight 130 lb 0.96 oz Weight 120 lb 12.8 oz 03/10/19 03/11/19 03/12/19 06:59 06:59 06:59 Intake Total 1088 840 Output Total 8699 2 Balance -4245 -0192 - Physical Examination General/Neuro: alert & oriented x3, NAD Neck: no JVD present Lungs: CTA, unlabored respirations Heart: RRR Abdomen: NT/ND Extremities: other: (no edema) - Telemetry Telemetry Rhythm: NSR - Labs Result Diagrams: 03/08/19 04:01 03/10/19 04:19 Troponin/CKMB Troponin I 0.014 ng/mL (< 0.028) 03/07/19 05:07 - Assessment/Plan 1. Non sustained VT 2. CAD 3. S/P BMS to LAD 4. Dilated CM EF at 20-25% 5. Acute on chronic systolic CHF 6. Substance abuse + cocaine on UDS PLAN: - Likely VT due to anterior ischemia and cocaine use and better now after stenting. - Counselled on substance abuse cessation. 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 If he continues to have VT will need VT ablation. - Continue Brilinta and aspirin 81 for a total of one month minimum. - Statin for life. - He agrees to lifevest. Will place order. - He may be discharged from hospital once Lifevest fitted.
[2019-03-11] MEDS ORDERED: Atorvastatin Calcium 40 MG TAB PO SCH (21:00)
[2019-03-12] MEDS ORDERED: Carvedilol 3.125 MG TAB PO SCH (09:00)
[2019-03-12] MEDS: Enoxaparin Sodium 40 MG/0.4 ML SYRINGE SC SCH (09:14)
[2019-03-12] MEDS: Multivitamin W/ Minerals 1 TAB PO SCH (09:15)
[2019-03-12] MEDS: Lisinopril 5 MG TAB PO SCH (09:15)
[2019-03-12] MEDS: TICAGRELOR 90 MG TABLET PO SCH (09:15)
[2019-03-12] MEDS: Aspirin Chewable 81 MG TAB PO SCH (09:15)
[2019-03-12] MEDS: Spironolactone 25 MG TAB PO SCH (09:15)
[2019-03-12] MEDS: Magnesium Oxide 400 MG TAB PO SCH (09:16)
[2019-03-12] MEDS: Folic Acid 1 MG TAB PO SCH (09:16)
[2019-03-12] MEDS: Thiamine 100 MG TAB PO SCH (09:16)
--- NOTE | 2019-03-12 12:26 | PDOC.PN ---
- Subjective Encounter Start Date: 03/12/19 Encounter Start Time: 12:24 Subjective: feels well. no new complaints -: no CP/SOB - Objective Resuscitation Status - Order Detail: 03/06/19 22:27 Resuscitation Status Routine Co-Sign Provider: Resuscitation Status: FULL: Full Resuscitation MAR Reviewed: Yes Vital Signs & Weight: Vital Signs (12 hours) Temp Pulse Resp BP BP BP Pulse Ox 03/12/19 11:45 98.1 F 90 16 121/72 95 03/12/19 09:15 113/73 03/12/19 08:00 113/73 03/12/19 07:36 98.3 F 89 18 113/73 96 03/12/19 07:01 80 16 96 03/12/19 04:00 121/70 03/12/19 03:02 98.6 F 82 17 121/70 93 L 03/12/19 01:45 94 L 03/12/19 00:28 82 16 Weight Admit Weight 130 lb 0.96 oz Weight 116 lb 9.6 oz Most Recent Monitor Data Heart Rate from ECG 84 NIBP 156/93 NIBP BP-Mean 114 Respiration from ECG 31 SpO2 100 I&O: 03/11/19 03/12/19 03/13/19 06:59 06:59 06:59 Intake Total 840 320 Output Total 2024 550 Balance -1185 -230 Result Diagrams: 03/08/19 04:01 03/10/19 04:19 Phys Exam - Physical Examination Constitutional: NAD HEENT: PERRLA, moist MMs, sclera anicteric, oral pharynx no lesions Neck: no nodes, no JVD, supple, full ROM Respiratory: no wheezing, no rales, no rhonchi, clear to auscultation bilateral Cardiovascular: RRR, no significant murmur, no rub Gastrointestinal: soft, non-tender, no distention, positive bowel sounds Musculoskeletal: no edema, pulses present Neurological: non-focal, normal sensation, moves all 4 limbs Psychiatric: normal affect, A&O x 3 Skin: no rash Dx/Plan (1) V-tach Code(s): I47.2 - VENTRICULAR TACHYCARDIA Status: Suspected Comment: Amiodarone Stopped .no more VT.Was likley due to CAD w Cocaine abuse.Resolved with LAD stenting. d/t CAD.s/p SOFI to LAD.EP and cardiology following as well (2) Acute exacerbation of CHF (congestive heart failure) Code(s): I50.9 - HEART FAILURE, UNSPECIFIED Status: Acute Qualifiers: Heart failure type: unspecified Qualified Code(s): I50.9 - Heart failure, unspecified Comment: improved.will start aldactone given low EF (3) Cocaine abuse Code(s): F14.10 - COCAINE ABUSE, UNCOMPLICATED Status: Acute Comment: counselled again (4) Alcohol abuse Code(s): F10.10 - ALCOHOL ABUSE, UNCOMPLICATED Status: Chronic Comment: [facility] protocol (5) COPD (chronic obstructive pulmonary disease) Status: Chronic Qualifiers: COPD type: chronic bronchitis Comment: stable (6) Tobacco abuse Code(s): Z72.0 - TOBACCO USE Status: Chronic (7) Ischemic cardiomyopathy Code(s): I25.5 - ISCHEMIC CARDIOMYOPATHY Status: Chronic Comment: s/p SOFI to LAD.cont ASA,statin,Brilinta,PRISCILLA-I,aldactone - Plan out of bed/ambulate, DVT proph w/SCDs awaiting lifevest ,then OK to DC w OP f/u w cardiology -: no BB given cocaine abuse. -: HD stable * . Review of Systems - Review of Systems Constitutional: negative: fever, chills, sweats, weakness, malaise, other ENT: negative: Ear Pain, Ear Discharge, Nose Pain, Nose Discharge, Nose Congestion, Mouth Pain, Mouth Swelling, Throat Pain, Throat Swelling, Other Respiratory: negative: Cough, Dry, Shortness of Breath, Hemoptysis, SOB with Excertion, Pleuritic Pain, Sputum, Wheezing Cardiovascular: negative: chest pain, palpitations, orthopnea, paroxysmal nocturnal dyspnea, edema, light headedness, other Gastrointestinal: negative: Nausea, Vomiting, Abdominal Pain, Diarrhea, Constipation, Melena, Hematochezia, Other Genitourinary: negative: Dysuria, Frequency, Incontinence, Hematuria, Retention , Other Musculoskeletal: negative: Neck Pain, Shoulder Pain, Arm Pain, Back Pain, Hand Pain, Leg Pain, Foot Pain, Other Neurological: negative: Weakness, Numbness, Incoordination, Change in Speech, Confusion, Seizures, Other - Medications/Allergies Allergies/Adverse Reactions: Allergies Allergy/AdvReac Type Severity Reaction Status Date / Time No Known Allergies Allergy Verified 03/06/19 18:19 Medications: Current Medications Acetaminophen (Tylenol) 650 mg PO Q4H PRN PRN Reason: Headache/Fever/Mild Pain (1-3) Last Admin: 03/10/19 06:42 Dose: 650 mg Albuterol Sulfate (Proventil Hfa) 2 puff INH Q4HR PRN PRN Reason: SOB &/or Wheezing Albuterol/Ipratropium (Duoneb) 3 ml NEB Q6HR [facility] Last Admin: 03/12/19 07:01 Dose: 3 ml Aspirin (Aspirin Chewable) 81 mg PO DAILY [facility] Last Admin: 03/12/19 09:15 Dose: 81 mg Atorvastatin Calcium (Lipitor) 40 mg PO HS [facility] Last Admin: 03/11/19 20:27 Dose: 40 mg Enoxaparin Sodium (Lovenox) 40 mg SC 0900 [facility] Last Admin: 03/12/19 09:14 Dose: 40 mg Folic Acid (Folvite) 1 mg PO DAILY [facility] Last Admin: 03/12/19 09:16 Dose: 1 mg Iron/Minerals/Multivitamins (Theragran M) 1 tab PO DAILY [facility] Last Admin: 03/12/19 09:15 Dose: 1 tab Lisinopril (Zestril) 5 mg PO BID [facility] Last Admin: 03/12/19 09:15 Dose: 5 mg Magnesium Oxide (Magnesium Oxide) 400 mg PO DAILY [facility] Last Admin: 03/12/19 09:16 Dose: 400 mg Miscellaneous (Ase Protocol) 1 each FS ONE [facility] Stop: 03/17/19 00:16 Ondansetron HCl (Zofran) 4 mg IVP Q6H PRN PRN Reason: Nausea/Vomiting Sodium Chloride (Flush - Normal Saline) 10 ml IVF Q12HR [facility] Last Admin: 03/12/19 09:14 Dose: 10 ml Sodium Chloride (Flush - Normal Saline) 10 ml IVF PRN PRN PRN Reason: Saline Flush Spironolactone (Aldactone) 12.5 mg PO QAM-WM [facility] Last Admin: 03/12/19 09:15 Dose: 12.5 mg Thiamine HCl (Thiamine) 100 mg PO DAILY [facility] Last Admin: 03/12/19 09:16 Dose: 100 mg Ticagrelor (Brilinta) 90 mg PO BID [facility] Last Admin: 03/12/19 09:15 Dose: 90 mg
[2019-03-12 15:51] VITALS: BP 123/79; TEMP 98.2
--- NOTE | 2019-03-12 17:42 | PDOC.CTH ---
Cardiology Progress Note - Subjective Doing well. No new issues. - Objective Vital Signs Temp Pulse Resp BP BP Pulse Ox 03/12/19 15:50 98.2 F 103 H 19 123/79 94 L 03/12/19 13:12 83 16 94 L 03/12/19 11:45 98.1 F 90 16 121/72 95 03/12/19 09:15 113/73 03/12/19 08:00 113/73 03/12/19 07:36 98.3 F 89 18 113/73 96 03/12/19 07:01 80 16 96 Admit Weight 130 lb 0.96 oz Weight 116 lb 9.6 oz 03/11/19 03/12/19 03/13/19 06:59 06:59 06:59 Intake Total 840 320 Output Total 5 550 Balance -1185 -230 - Physical Examination General/Neuro: alert & oriented x3, NAD Neck: no JVD present Lungs: CTA, unlabored respirations Heart: RRR Abdomen: NT/ND Extremities: other: (no edema) - Telemetry Telemetry Rhythm: NSR - Labs Result Diagrams: 03/08/19 04:01 03/10/19 04:19 Troponin/CKMB Troponin I 0.014 ng/mL (< 0.028) 03/07/19 05:07 - Assessment/Plan 1. Non sustained VT 2. CAD 3. S/P BMS to LAD 4. Dilated CM EF at 20-25% 5. Acute on chronic systolic CHF 6. Substance abuse + cocaine on UDS PLAN: - Home once lifevest set up. - Follow up in 1 month in the office. - Will sign off. please call with any questions.
--- NOTE | 2019-03-13 21:03 | DIS ---
DATE OF ADMISSION: 03/07/2019 DATE OF DISCHARGE: 03/12/2019 CONDITION: At the time of discharge, stable and improved. DISCHARGE DISPOSITION: Home. PRIMARY CARE PHYSICIAN: Dr. Todd Lopez. IN-HOUSE CONSULTATION: 1. Cardiology, Dr. Layton. 2. Electrophysiology, Dr. Foote. 3. Pulmonary Medicine, Dr. Guerra. DISCHARGE DIAGNOSES: 1. Ventricular tachycardia, back to sinus rhythm prior to discharge. 2. Acute systolic congestive heart failure exacerbation, ACC stage C. 3. Cocaine abuse. 4. Alcohol abuse. 5. Chronic obstructive pulmonary disease. 6. Tobacco abuse. 7. Ischemic cardiomyopathy. 8. Coronary artery disease, status post bare metal stent to LAD. DISCHARGE MEDICATIONS: 1. Brilinta 90 mg p.o. b.i.d. 2. Aldactone 12.5 mg every morning. 3. Lisinopril 5 mg p.o. b.i.d. 4. Atorvastatin 40 mg daily. 5. Aspirin 81 mg daily. Please note that the patient was not started on beta agustin despite his coronary artery disease as he is a habitual cocaine abuser. PROCEDURES DONE IN THE HOSPITAL: 1. Cardiac catheterization on 03/07/2019, by Dr. Layton which shows severe mid and mid distal LAD and occluded large obtuse marginal 2 branch which is filling from collaterals. He had a dominant RCA without significant disease. A bare metal stent was placed in mid distal LAD. 2. Transthoracic echocardiogram which shows EF of 20% to 25%, with dilated left ventricle and right ventricle. He has inferior and inferolateral akinesis. He has dilated left and right atrium. He has elevated right ventricular systolic pressure at 42 mmHg. 3. Multiple chest x-rays. HISTORY OF PRESENTING ILLNESS: Mr. Dowd is a 69-year-old Afro-[place]i male with past medical history of COPD, who presented to the emergency room with complaints of shortness of breath and lower extremity edema. He stated that his symptoms have been worsening for the last 3 weeks prior to presentation. His cardiac enzymes were found to be negative in the emergency room, but his BNP was elevated to over 900. Chest x-ray showed some mild pulmonary vascular congestion. He was diagnosed as having possibly acute CHF and was started on diuretics and Cardiology was consulted. Please see admission history and physical dictated by ARELIS Vasquez on 03/06/2019, for full details. HOSPITAL COURSE: The patient was seen by Cardiology, Dr. Layton, and he was found to have significant history of alcohol and cocaine abuse. While in the hospital, he started to have episodes of wide-complex rhythm with heart rate in the 140s to 150s with some lightheadedness. Dr. Layton thought that this might be ventricular tachycardia. He was started on amiodarone drip and a cardiac catheterization was done. He was found to have coronary artery disease as above and required a bare metal stent as above. After the stent and amiodarone drip, he converted back to normal sinus rhythm and remained in sinus rhythm throughout the rest of his hospitalization. Amiodarone drip was discontinued rather quickly and Electrophysiology was also consulted. Dr. Foote has been seeing the patient and he agrees that his ventricular tachycardia was likely due to his coronary artery disease compounded by the fact that he is a cocaine abuser. At this time, he remains in sinus rhythm, so he was not started on any specific antiarrhythmics. Beta blockers were not an option for his because of his chronic cocaine abuse. He was extensively counseled against cocaine, tobacco, and alcohol abuse, and he verbalized understanding. He was found to have ischemic dilated cardiomyopathy and he was fitted with a LifeVest prior to discharge. He was started on appropriate cardiac prudent medications including aspirin, statin, PRISCILLA inhibitors, and Aldactone. He was given outpatient cardiac rehab appointment and will follow up with Cardiology and Pulmonary Medicine in the outpatient setting. Once again, extensive counseling against cocaine, alcohol, and tobacco was provided. The patient was seen and examined prior to discharge. Please see hospitalist progress note from the date of discharge for full details including [id number] interaction. TIME SPENT: Total time spent in the discharge, 32 minutes. Job ID: [id number]
== END 2019-03-12 19:28 | disposition home or self-care (01) | DRG 248 ==
LOC: ERS 13:56 → ERHOLD 17:05 → 2SW 18:13 → OBSVTOIN 03-07 02:23 → CCU 03-07 14:38 → 2NO 03-10 17:34
PROVIDERS: ADMIT Emergency Medicine; ATTEND Emergency Medicine
PROC: 02703EZ Dilation of Coronary Artery, One Artery with Two Intraluminal Devices, Percutaneous Approach (ICD-10-PCS; principal; 2019-03-07)
PROC: 0BH17EZ Insertion of Endotracheal Airway into Trachea, Via Natural or Artificial Opening (ICD-10-PCS; 2019-03-07)
PROC: 4A023N7 Measurement of Cardiac Sampling and Pressure, Left Heart, Percutaneous Approach (ICD-10-PCS; 2019-03-07)
PROC: 5A1945Z Respiratory Ventilation, 24-96 Consecutive Hours (ICD-10-PCS; 2019-03-07)
PROC: 3E033XZ Introduction of Vasopressor into Peripheral Vein, Percutaneous Approach (ICD-10-PCS; 2019-03-07)
PROC: B2111ZZ Fluoroscopy of Multiple Coronary Arteries using Low Osmolar Contrast (ICD-10-PCS; 2019-03-07)
DX: I50.23 Acute on chronic systolic (congestive) heart failure (principal); J96.21 Acute and chronic respiratory failure with hypoxia; I47.2 Ventricular tachycardia; E87.3 Alkalosis; I95.9 Hypotension, unspecified; J44.9 Chronic obstructive pulmonary disease, unspecified; I25.5 Ischemic cardiomyopathy; I25.10 Atherosclerotic heart disease of native coronary artery without angina pectoris; F17.210 Nicotine dependence, cigarettes, uncomplicated; F14.10 Cocaine abuse, uncomplicated; F10.10 Alcohol abuse, uncomplicated; Z79.82 Long term (current) use of aspirin; Z79.899 Other long term (current) drug therapy
CPT/HCPCS: 36415; 71045; 80048; 80053; 80061; 80306; 82805; 83735; 83880; 84443; 84484; 85025; 85347; 92928; 93005; 93010; 93306; 93454; 93798; 94002; 94003; 94640; 96374; C1769; C1876; J0153; J0282; J1120; J1250; J1265; J1644; J1650; J1940; J2060; J2270; J2704; J3010; J3411; J3475; J3490; J7070; J7620; Q9967

== ENCOUNTER 2019-10-06 12:33 | Outpatient (CLI) | payer MEDICARE ==
--- NOTE | 2019-10-06 13:39 | CT ---
CT CHEST WITHOUT CONTRAST: HISTORY: Pulmonary nodule. COMPARISON: 09/24/2018 09/25/2017 FINDINGS: Absence of IV contrast reduces the sensitivity of the exam particularly for the evaluation of mediast inal, hilar and vascular structures. There are vascular calcifications without evidence of aneurysmal dilatation of the thoracic aorta. No pleural or pericardial effusions are identified. The tracheobronchial tree is patent. The 7 mm nodular density with associated scarring in the right upper lobe is stable. Scarring in the left lung is again seen. Evidence of old granulomatous disease is re-demonstrated. No new parenchymal lung nodules or masses are identified. Bony structures are stable. IMPRESSION: Stable examination. POS: [facility]
== END 2019-10-06 12:34 | disposition home or self-care (01) ==
LOC: CT 12:33
PROVIDERS: ATTEND Internal Medicine
DX: R91.1 Solitary pulmonary nodule (principal)
CPT/HCPCS: 71250

== ENCOUNTER 2021-02-06 19:39 | Inpatient (IN) | payer MEDICARE ==
[2021-02-06] MEDS ORDERED: diphenhydrAMINE 50 MG/ML VIAL ONE (19:55)
[2021-02-06] MEDS ORDERED: EPINEPHrine 1 MG/ML AMP ONE ×2 (19:55→20:20)
[2021-02-06] MEDS ORDERED: Tranexamic Acid 1,000 MG/10 ML VIAL ONE (19:55)
[2021-02-06] MEDS ORDERED: Famotidine/PF 20 mg/2ml Vial ONE (19:55)
[2021-02-06] MEDS ORDERED: methylPREDNISolone Sod Succ/PF 125 MG/2 ML VIAL ONE (20:07)
[2021-02-06] MEDS ORDERED: Ketamine 50 MG/ML (10ML VIAL) ONE (20:19)
[2021-02-06] MEDS ORDERED: Dexmedetomidine 200 MCG/2 ML VIAL ONE (20:20)
[2021-02-06] MEDS ORDERED: Lidocaine 4% Topical Sol 50 ML BOT ONE (20:27)
[2021-02-06] MEDS ORDERED: Lidocaine 2% Jelly 5 ML TUBE ONE (20:31)
[2021-02-06] MEDS ORDERED: Midazolam HCl 2 mg/2 ml Vial ONE (20:41)
[2021-02-06] MEDS ORDERED: AFRIN NASAL MIST 15 ML BOT ONE (20:41)
[2021-02-06] MEDS ORDERED: Lidocaine 1% w/Epinephrine 1:100K 20 ML VIAL ONE (20:47)
[2021-02-06 21:03] LABS: ALT (SGPT) 13 U/L (8-55); AST (SGOT) 30 U/L (5-34); Albumin 4.4 g/dL (3.4-4.8); Alkaline Phosphatase 56 U/L (40-110); Anion Gap 22 mmol/L (10-20); BUN (Urea Nitrogen) 9 mg/dL (8.4-25.7); Bilirubin, Total 0.8 mg/dL (0.2-1.2); Calc. Creatinine Clearance 0 mL/min (70-130); Calcium 8.9 mg/dL (7.8-10.44); Carbon Dioxide 22 mmol/L (23-31); Chloride 79 mmol/L (98-107); Globulin 3.2 g/dL (2.4-3.5); Glucose 101 mg/dL (80-115); Potassium 5.3 mmol/L (3.5-5.1); Protein, Total 7.6 g/dL (5.8-8.1)
[2021-02-06 21:13] LABS: Sodium 118 mmol/L (136-145)
[2021-02-06 21:19] LABS: #Lymphocytes 1.1 thou/uL (1.20-3.40); #Monocytes 0.6 thou/uL (0.11-0.59); #Neutrophils 2.4 thou/uL (1.40-6.50); %Basophils 0.3 % (0.0-1.0); %Eosinophils 1.2 % (0.0-10.0); %Lymphocytes 26.3 % (21.0-51.0); %Monocytes 14.5 % (0.0-10.0); %Neutrophils 57.8 % (42.0-75.0); Hemoglobin 16.2 g/dL (14.0-18.0); Lymphocytes 21 % (21-51); MDiff Complete? YES; Mean Corpuscular HGB CONC 34.1 g/dL (32.0-36.0); Mean Corpuscular Hemoglobin 31.7 pg (27.0-31.0); Mean Corpuscular Volume 92.9 fL (78.0-98.0); Mean Platelet Volume 7.8 fL (7.4-10.4); Monocytes 10 % (0-10); Neutrophil 66 % (42-75); Platelet Count 189 thou/uL (130-400); Platelet Morphology Comment Appears Adequate; RBC Distribution Width 12.8 % (11.5-14.5); Red Blood Cell (RBC) Count 5.13 mill/uL (4.70-6.10); White Blood Cell (WBC) Count 4.1 thou/uL (4.8-10.8)
[2021-02-06 21:44] LABS: Actual Bicarbonate (HCO3a) 28.9 mEq/L (22-28); Base Excess (BEa) 4.1 mEq/L (-2.0 to +3.0); CO2 Tension 43.7 mmHg (35.0-45.0); Calcium, Ionized (arterial) 1.06 mmol/L (1.12-1.30); Carboxyhemoglobin (COHb) 5.2 gm% (0.0-3.0); Hemoglobin (Hb) 15.6 g/dL (14.0-18.0); O2 Tension (PaO2), arterial 231.1 mmHg (> 80.0); Potassium - ABG Lab 4.73 mmol/L (3.70-5.30); pH, Arterial 7.44 (7.35-7.45)
[2021-02-06] MEDS ORDERED: Propofol 1,000 MG/100 ML VIAL IV ONE (21:49)
[2021-02-06] MEDS ORDERED: Ondansetron PF 4 MG/2 ML Vial IVP PRN (21:53)
[2021-02-06] MEDS ORDERED: hydrALAZINE 20 MG/ML VIAL SLOW IVP PRN (22:00)
[2021-02-06 22:51] LABS: SARS-CoV-2 NAA Rapid Test Not Detected (NotDetected)
[2021-02-06] MEDS ORDERED: Fentanyl CADD 100 ML ONE (22:59)
[2021-02-06] MEDS ORDERED: Fentanyl CADD 100 ML IV SCH (23:00)
[2021-02-06] MEDS ORDERED: Fentanyl BOLUS 250 ML IVPB PRN (23:00)
[2021-02-06] MEDS ORDERED: DISCONTINUE PREVIOUS NARCOTIC PAIN MEDICATIONS AND BENZODIAZEPINES FS SCH (23:00)
[2021-02-06] MEDS ORDERED: Lorazepam 2 MG/ML VIAL SLOW IVP PRN (23:00)
[2021-02-06] MEDS ORDERED: Propofol BOLUS 1,000 MG/100 ML VIAL IV PRN (23:00)
[2021-02-06] MEDS ORDERED: Morphine 2 MG/ML VIAL SLOW IVP PRN (23:00)
[2021-02-06] MEDS ORDERED: Propofol 1,000 MG/100 ML VIAL IV PRN (23:00)
[2021-02-06 23:07] LABS: Bacteria/HPF None Seen HPF (None Seen); Bilirubin Negative (Negative); Blood, Urine Trace (Negative); Clarity Clear (Clear); Glucose, Urine (Dipstick) Normal (Negative); Ketone, Urine Trace mg/dL (Negative); Leukocyte Negative Leu/uL (Negative); Nitrite Negative (Negative); Protein, Urine (Dipstick) 70 mg/dL (Neg-Trace); Specific Gravity, Urine 1.024 (1.002-1.036); Squamous Epithelial 0-3 HPF (0-3); Urobilinogen Normal mg/dL (Less than 2); pH, Urine 5.5 (5.0-9.0)
[2021-02-06] MEDS ORDERED: Conivaptan 20 MG in Premix Bag 1 BAG IVPB SCH (23:15)
[2021-02-06] MEDS ORDERED: Vecuronium 10 MG VIAL IV PRN (23:20)
[2021-02-06 23:21] LABS: Urine Culture Reflex Yes Yes
[2021-02-06] MEDS ORDERED: Sodium Chloride 3% 500 ML IVPB SCH (23:59)
[2021-02-07 01:23] VITALS: BMI 21.0
[2021-02-07] MEDS ORDERED: Sterile Water 10 ML ONE (02:44)
[2021-02-07 02:54] LABS: Sodium 120 mmol/L (136-145)
[2021-02-07] MEDS ORDERED: Sodium Chloride 3% 500 ML IVPB SCH ×2 (02:57→08:42)
[2021-02-07 03:31] LABS: #Lymphocytes 0.4 thou/uL (1.20-3.40); #Monocytes 0.2 thou/uL (0.11-0.59); #Neutrophils 2.9 thou/uL (1.40-6.50); %Basophils 1.4 % (0.0-1.0); %Lymphocytes 11.2 % (21.0-51.0); %Monocytes 5.6 % (0.0-10.0); %Neutrophils 81.9 % (42.0-75.0); Hemoglobin 16.6 g/dL (14.0-18.0); Mean Corpuscular Hemoglobin 32.2 pg (27.0-31.0); Mean Corpuscular Volume 94.6 fL (78.0-98.0); Platelet Count 247 thou/uL (130-400); RBC Distribution Width 12.7 % (11.5-14.5); Red Blood Cell (RBC) Count 5.17 mill/uL (4.70-6.10); White Blood Cell (WBC) Count 3.6 thou/uL (4.8-10.8)
[2021-02-07 03:36] LABS: Amphetamine Not Detected (NotDetected); Barbiturates Screen Not Detected (NotDetected); Benzodiazepine Screen Not Detected (NotDetected); Cocaine Metabolite Screen Detected (NotDetected); Medtox Control Line Valid? VALID (VALID); Medtox Reader # READER 1; Methadone Not Detected (NotDetected); Methamphetamine Not Detected (NotDetected); Opiate Screen Not Detected (NotDetected); Oxycodone Screen Not Detected (NotDetected); Phencyclidine (PCP) Not Detected (NotDetected); THC/Cannabinoid Screen Not Detected (NotDetected); Tricyclic Screen Not Detected (NotDetected)
[2021-02-07 03:48] LABS: Anion Gap 16 mmol/L (10-20); BUN (Urea Nitrogen) 12 mg/dL (8.4-25.7); Calc. Creatinine Clearance 59 mL/min (70-130); Calcium 8.5 mg/dL (7.8-10.44); Carbon Dioxide 32 mmol/L (23-31); Chloride 77 mmol/L (98-107); Glucose 106 mg/dL (80-115); Potassium 4.5 mmol/L (3.5-5.1); Sodium 120 mmol/L (136-145)
[2021-02-07 05:48] LABS: Sodium 120 mmol/L (136-145)
[2021-02-07] MEDS ORDERED: Norepinephrine 8 MG/0.9% NS 250 ML ONE (06:22)
[2021-02-07] MEDS ORDERED: Norepinephrine 8 MG/0.9% NS 250 ML IVPB SCH (06:45)
[2021-02-07 08:09] LABS: Actual Bicarbonate (HCO3a) 23.9 mEq/L (22-28); Analyzer IN Cardio ER; Base Excess (BEa) -0.6 mEq/L (-2.0 to +3.0); CO2 Tension 39.3 mmHg (35.0-45.0); Calcium, Ionized (arterial) 1.08 mmol/L (1.12-1.30); Carboxyhemoglobin (COHb) 1.9 gm% (0.0-3.0); Hemoglobin (Hb) 17.7 g/dL (14.0-18.0); O2 Tension (PaO2), arterial 77.1 mmHg (> 80.0); Potassium - ABG Lab 4.64 mmol/L (3.70-5.30)
[2021-02-07 08:16] LABS: ALV-art Gradient -71.825 mmHg (0-20); Puncture Site RRA
[2021-02-07 08:51] LABS: Sodium 128 mmol/L (136-145)
[2021-02-07] MEDS ORDERED: DC Sedation Protocol FS SCH (08:56)
[2021-02-07] MEDS ORDERED: Enoxaparin Sodium 40 MG/0.4 ML SYRINGE SC SCH (09:00)
[2021-02-07 11:13] LABS: Sodium 121 mmol/L (136-145)
[2021-02-07] MEDS: Famotidine 20 MG TAB PO SCH ×2 (12:19→20:48)
[2021-02-07 13:20] LABS: Sodium 122 mmol/L (136-145)
[2021-02-07] MEDS: Acetaminophen 325 MG TAB PO PRN ×2 (15:55→23:51)
[2021-02-07 16:45] LABS: Sodium 122 mmol/L (136-145)
[2021-02-07 18:48] LABS: Sodium 119 mmol/L (136-145)
[2021-02-07 20:24] LABS: Sodium 121 mmol/L (136-145)
[2021-02-07] MEDS ORDERED: TOLVAPTAN 30 MG TAB PO SCH (20:30)
[2021-02-08 04:51] LABS: #Lymphocytes 0.7 thou/uL (1.20-3.40); #Monocytes 1.8 thou/uL (0.11-0.59); #Neutrophils 10.6 thou/uL (1.40-6.50); %Basophils 0.2 % (0.0-1.0); %Lymphocytes 5.4 % (21.0-51.0); %Monocytes 13.8 % (0.0-10.0); %Neutrophils 80.7 % (42.0-75.0); Hemoglobin 13.1 g/dL (14.0-18.0); Mean Corpuscular HGB CONC 32.6 g/dL (32.0-36.0); Mean Corpuscular Hemoglobin 30.8 pg (27.0-31.0); Mean Corpuscular Volume 94.3 fL (78.0-98.0); Mean Platelet Volume 7.3 fL (7.4-10.4); Platelet Count 238 thou/uL (130-400); RBC Distribution Width 12.6 % (11.5-14.5); Red Blood Cell (RBC) Count 4.27 mill/uL (4.70-6.10); White Blood Cell (WBC) Count 13.2 thou/uL (4.8-10.8)
[2021-02-08 05:03] LABS: Anion Gap 12 mmol/L (10-20); BUN (Urea Nitrogen) 17 mg/dL (8.4-25.7); Calc. Creatinine Clearance 63 mL/min (70-130); Calcium 8.4 mg/dL (7.8-10.44); Carbon Dioxide 35 mmol/L (23-31); Chloride 85 mmol/L (98-107); Glucose 120 mg/dL (80-115); Potassium 5.3 mmol/L (3.5-5.1); Sodium 127 mmol/L (136-145)
[2021-02-08] MEDS ORDERED: Tolvaptan 15 MG TAB PO SCH (08:00)
[2021-02-08] MEDS ORDERED: TOLVAPTAN 30 MG TAB PO SCH (10:15)
[2021-02-08] MEDS: Famotidine 20 MG TAB PO SCH ×2 (10:41→20:26)
[2021-02-08] MEDS: Enoxaparin Sodium 40 MG/0.4 ML SYRINGE SC SCH (10:42)
[2021-02-08] MEDS: Acetaminophen 325 MG TAB PO PRN (20:32)
[2021-02-09 07:08] LABS: Anion Gap 13 mmol/L (10-20); BUN (Urea Nitrogen) 13 mg/dL (8.4-25.7); Calc. Creatinine Clearance 72 mL/min (70-130); Calcium 9.4 mg/dL (7.8-10.44); Carbon Dioxide 35 mmol/L (23-31); Chloride 92 mmol/L (98-107); Glucose 114 mg/dL (80-115); Potassium 4.4 mmol/L (3.5-5.1); Sodium 136 mmol/L (136-145)
[2021-02-09 07:25] LABS: Band 10 % (5-11); Lymphocytes 2 % (21-51); MDiff Complete? YES; Mean Corpuscular HGB CONC 31.6 g/dL (32.0-36.0); Mean Corpuscular Hemoglobin 30.6 pg (27.0-31.0); Mean Corpuscular Volume 96.9 fL (78.0-98.0); Mean Platelet Volume 7.3 fL (7.4-10.4); Monocytes 24 % (0-10); Neutrophil 63 % (42-75); Platelet Count 216 thou/uL (130-400); Platelet Morphology Comment Appears Adequate; RBC Distribution Width 12.9 % (11.5-14.5); Reactive Lymphocytes 1 % (0-10); Red Blood Cell (RBC) Count 4.25 mill/uL (4.70-6.10); Target Cells SLIGHT = 2-5 cells (100X) (0-1/hpf); White Blood Cell (WBC) Count 10.8 thou/uL (4.8-10.8)
[2021-02-09 07:45] LABS: Puncture Site RRA
[2021-02-09 07:46] LABS: ALV-art Gradient 87.675 mmHg (0-20)
[2021-02-09] MEDS: Carvedilol 6.25 MG TAB PO SCH ×2 (09:09→21:52)
[2021-02-09] MEDS: Spironolactone 25 MG TAB PO SCH (09:10)
[2021-02-09] MEDS: Famotidine 20 MG TAB PO SCH (09:11)
[2021-02-09] MEDS: Enoxaparin Sodium 40 MG/0.4 ML SYRINGE SC SCH (09:12)
[2021-02-09] MEDS ORDERED: Furosemide 40 MG/4 ML VIAL SLOW IVP SCH (18:30)
[2021-02-09] MEDS ORDERED: Atorvastatin Calcium 40 MG TAB PO SCH (21:00)
[2021-02-10] MEDS: Famotidine 20 MG TAB PO SCH (08:20)
[2021-02-10] MEDS: Carvedilol 6.25 MG TAB PO SCH (08:21)
[2021-02-10] MEDS: Spironolactone 25 MG TAB PO SCH (08:21)
[2021-02-10] MEDS: Enoxaparin Sodium 40 MG/0.4 ML SYRINGE SC SCH (08:24)
[2021-02-10 09:41] LABS: BUN (Urea Nitrogen) 11 mg/dL (8.4-25.7); Calc. Creatinine Clearance 79 mL/min (70-130); Calcium 8.7 mg/dL (7.8-10.44); Glucose 103 mg/dL (80-115)
[2021-02-10 09:58] LABS: Anion Gap 19 mmol/L (10-20); Carbon Dioxide 31 mmol/L (23-31); Chloride 89 mmol/L (98-107); Potassium 4.1 mmol/L (3.5-5.1); Sodium 135 mmol/L (136-145)
[2021-02-10 16:24] VITALS: BP 142/79; TEMP 98.1
== END 2021-02-10 15:39 | disposition home or self-care (01) | DRG 915 ==
LOC: ERS 19:39 → SDC/OP 20:58 → CCU 21:30 → T4-A 02-08 13:34
PROVIDERS: ADMIT Internal Medicine; ATTEND Internal Medicine
PROC: 0BH18EZ Insertion of Endotracheal Airway into Trachea, Via Natural or Artificial Opening Endoscopic (ICD-10-PCS; principal; 2021-02-07)
PROC: 5A1935Z Respiratory Ventilation, Less than 24 Consecutive Hours (ICD-10-PCS; 2021-02-07)
DX: T78.3XXA Angioneurotic edema, initial encounter (principal); J96.01 Acute respiratory failure with hypoxia; I50.23 Acute on chronic systolic (congestive) heart failure; E22.2 Syndrome of inappropriate secretion of antidiuretic hormone; I25.10 Atherosclerotic heart disease of native coronary artery without angina pectoris; J44.9 Chronic obstructive pulmonary disease, unspecified; E87.5 Hyperkalemia; J98.8 Other specified respiratory disorders; I25.5 Ischemic cardiomyopathy; F14.10 Cocaine abuse, uncomplicated; F10.10 Alcohol abuse, uncomplicated; Z72.0 Tobacco use; Z95.5 Presence of coronary angioplasty implant and graft; Z95.810 Presence of automatic (implantable) cardiac defibrillator
CPT/HCPCS: 36415; 36600; 71045; 80048; 80053; 80306; 81001; 82805; 83880; 83930; 83935; 84295; 84300; 84443; 84484; 85025; 86850; 86900; 86901; 87086; 93005; 93010; 94002; 94003; 94640; 94660; 96365; 96372; 96375; J0171; J1200; J1650; J1940; J2250; J2704; J2930; J3010; J7131; J7620; S0028; U0002

== ENCOUNTER 2021-02-25 07:38 | Inpatient (IN) | payer MEDICARE ==
[2021-02-25] MEDS ORDERED: Propofol 1,000 MG/100 ML VIAL IV ONE (08:34)
[2021-02-25] MEDS ORDERED: Succinylcholine 200 MG/10 ml SYRINGE FS ONE (08:34)
[2021-02-25] MEDS ORDERED: Fentanyl CADD 100 ML IV SCH (08:45)
[2021-02-25] MEDS ORDERED: Fentanyl 100 MCG/2 ML VIAL ONE ×2 (08:54→09:07)
[2021-02-25] MEDS ORDERED: Lorazepam 2 MG/ML VIAL ONE (09:04)
[2021-02-25 09:05] LABS: ALT (SGPT) 9 U/L (8-55); AST (SGOT) 16 U/L (5-34); Albumin 3.9 g/dL (3.4-4.8); Alkaline Phosphatase 53 U/L (40-110); Anion Gap 10 mmol/L (10-20); BUN (Urea Nitrogen) 13 mg/dL (8.4-25.7); Bilirubin, Total 0.5 mg/dL (0.2-1.2); Calc. Creatinine Clearance 0 mL/min (70-130); Carbon Dioxide 35 mmol/L (23-31); Chloride 89 mmol/L (98-107); Globulin 3.2 g/dL (2.4-3.5); Glucose 100 mg/dL (80-115); Potassium 4.7 mmol/L (3.5-5.1); Protein, Total 7.1 g/dL (5.8-8.1); Sodium 129 mmol/L (136-145)
[2021-02-25] MEDS ORDERED: Albuterol Sulfate 2.5 mg/3 ml Neb ONE (09:08)
[2021-02-25 09:28] LABS: Hypochromia SLIGHT = 6-15 cells (100X) (0-5/hpf); Lymphocytes 14 % (21-51); MDiff Complete? YES; Mean Corpuscular HGB CONC 29.9 g/dL (32.0-36.0); Mean Platelet Volume 6.5 fL (7.4-10.4); Monocytes 14 % (0-10); Neutrophil 71 % (42-75); Platelet Count 485 thou/uL (130-400); Platelet Morphology Comment Appears Increased; RBC Distribution Width 13.6 % (11.5-14.5); Reactive Lymphocytes 1 % (0-10); Red Blood Cell (RBC) Count 4.12 mill/uL (4.70-6.10)
[2021-02-25 09:29] LABS: Actual Bicarbonate (HCO3a) 27.8 mEq/L (22-28); Analyzer IN Cardio ER; Base Excess (BEa) 2.3 mEq/L (-2.0 to +3.0); CO2 Tension 47.1 mmHg (35.0-45.0); Calcium, Ionized (arterial) 1.04 mmol/L (1.12-1.30); Carboxyhemoglobin (COHb) 2.1 gm% (0.0-3.0); Hemoglobin (Hb) 11.1 g/dL (14.0-18.0); O2 Tension (PaO2), arterial 80.7 mmHg (> 80.0); Potassium - ABG Lab 4.19 mmol/L (3.70-5.30); pH, Arterial 7.39 (7.35-7.45)
[2021-02-25 09:34] LABS: ALV-art Gradient 145.625 mmHg (0-20); Puncture Site RRA
[2021-02-25] MEDS ORDERED: Famotidine/PF 20 mg/2ml Vial ONE (09:37)
[2021-02-25] MEDS ORDERED: Tranexamic Acid 1,000 MG/10 ML VIAL ONE (09:37)
[2021-02-25] MEDS ORDERED: EPINEPHrine 1 MG/10 ML Abboject SYRINGE ONE (09:37)
[2021-02-25] MEDS ORDERED: methylPREDNISolone Sod Succ/PF 125 MG/2 ML VIAL ONE (09:37)
[2021-02-25] MEDS ORDERED: Ondansetron PF 4 MG/2 ML Vial IVP PRN (10:07)
[2021-02-25] MEDS ORDERED: Acetaminophen 325 MG TAB PO PRN (10:07)
[2021-02-25 10:38] LABS: SARS-CoV-2 NAA Rapid Test Not Detected (NotDetected)
[2021-02-25] MEDS ORDERED: Morphine 4 MG/ML VIAL SLOW IVP PRN (11:22)
[2021-02-25] MEDS ORDERED: Propofol 1,000 MG/100 ML VIAL IV PRN (11:30)
[2021-02-25] MEDS ORDERED: DISCONTINUE PREVIOUS NARCOTIC PAIN MEDICATIONS AND BENZODIAZEPINES FS SCH (11:30)
[2021-02-25] MEDS ORDERED: Fentanyl BOLUS 250 ML IVPB PRN (11:30)
[2021-02-25] MEDS ORDERED: Morphine 2 MG/ML VIAL SLOW IVP PRN (11:30)
[2021-02-25] MEDS ORDERED: Lorazepam 2 MG/ML VIAL SLOW IVP PRN (11:30)
[2021-02-25] MEDS ORDERED: Propofol BOLUS 1,000 MG/100 ML VIAL IV PRN (11:30)
[2021-02-25] MEDS ORDERED: fentaNYL Citrate/PF 2,000 MCG in Sodium Chloride 0.9% 60 ML IV PRN (11:32)
[2021-02-25] MEDS ORDERED: Lactated Ringer's 1,000 ML IV SCH (11:45)
[2021-02-25] MEDS ORDERED: Electrolyte Replacement Protocol 1 EACH FS SCH (11:45)
[2021-02-25] MEDS ORDERED: Magnesium 2 GM/50 ML 2 GM in Premix Bag 1 BAG IVPB PRN (11:53)
[2021-02-25] MEDS ORDERED: Potassium Phosphate 15 MMOL in Sodium Chloride 0.9% 250 ML 250 ML IVPB PRN (11:54)
[2021-02-25 12:18] VITALS: BMI 19.3
[2021-02-25 12:38] LABS: Phosphorus 3.4 mg/dL (2.3-4.7)
[2021-02-25 12:45] LABS: Troponin I Less than 0.010 ng/mL (< 0.028)
[2021-02-25] MEDS ORDERED: Electrolyte Replacement Protocol FS PRN (12:45)
[2021-02-25] MEDS: Famotidine/PF 20 mg/2ml Vial SLOW IVP SCH (12:52)
[2021-02-25 12:53] LABS: Amphetamine Not Detected (NotDetected); Barbiturates Screen Not Detected (NotDetected); Benzodiazepine Screen Detected (NotDetected); Cocaine Metabolite Screen Detected (NotDetected); Medtox Control Line Valid? VALID (VALID); Medtox Reader # READER 1; Methadone Not Detected (NotDetected); Methamphetamine Not Detected (NotDetected); Opiate Screen Not Detected (NotDetected); Oxycodone Screen Not Detected (NotDetected); Phencyclidine (PCP) Not Detected (NotDetected); THC/Cannabinoid Screen Not Detected (NotDetected); Tricyclic Screen Not Detected (NotDetected)
[2021-02-25] MEDS ORDERED: Famotidine 40 MG/4 ML VIAL IV SCH (13:00)
[2021-02-25] MEDS ORDERED: methylPREDNISolone Sod Succ 40 MG VIAL IVP SCH (14:00)
[2021-02-25 16:23] LABS: Sodium 129 mmol/L (136-145)
[2021-02-25 16:44] LABS: Troponin I Less than 0.010 ng/mL (< 0.028)
[2021-02-25] MEDS: methylPREDNISolone Sod Succ 40 MG VIAL IVP SCH ×2 (19:09→23:46)
[2021-02-25] MEDS ORDERED: Conivaptan 20 MG in Premix Bag 1 BAG IVPB SCH (19:15)
[2021-02-25] MEDS ORDERED: Tolvaptan 15 MG TAB PO SCH (19:30)
[2021-02-25] MEDS ORDERED: TOLVAPTAN 30 MG TAB PO SCH (19:45)
[2021-02-25] MEDS: Apixaban 5 MG TAB PO SCH (20:08)
[2021-02-25] MEDS ORDERED: Fentanyl CADD 100 ML ONE (20:22)
[2021-02-25] MEDS: Fentanyl CADD 100 ML IV SCH (20:29)
[2021-02-25] MEDS ORDERED: Famotidine 20 MG TAB PO SCH (21:00)
[2021-02-26 01:06] LABS: Hemoglobin 11.3 g/dL (14.0-18.0); Mean Corpuscular HGB CONC 32.3 g/dL (32.0-36.0); Mean Corpuscular Hemoglobin 30.5 pg (27.0-31.0); Mean Corpuscular Volume 94.3 fL (78.0-98.0); Mean Platelet Volume 6.8 fL (7.4-10.4); Platelet Count 429 thou/uL (130-400); RBC Distribution Width 13.5 % (11.5-14.5); Red Blood Cell (RBC) Count 3.71 mill/uL (4.70-6.10); White Blood Cell (WBC) Count 6.7 thou/uL (4.8-10.8)
[2021-02-26 01:12] LABS: Sodium 133 mmol/L (136-145)
[2021-02-26 01:30] LABS: Band 1 % (5-11); Lymphocytes 6 % (21-51); MDiff Complete? YES; Monocytes 9 % (0-10); Neutrophil 84 % (42-75); Platelet Morphology Comment Appears Increased
[2021-02-26] MEDS: Famotidine/PF 20 mg/2ml Vial SLOW IVP SCH ×2 (01:35→16:14)
[2021-02-26 02:17] LABS: Anion Gap 13 mmol/L (10-20); BUN (Urea Nitrogen) 13 mg/dL (8.4-25.7); Calc. Creatinine Clearance 76 mL/min (70-130); Carbon Dioxide 29 mmol/L (23-31); Chloride 96 mmol/L (98-107); Glucose 129 mg/dL (80-115); Magnesium 1.8 mg/dL (1.6-2.6); Potassium 5.1 mmol/L (3.5-5.1); Sodium 133 mmol/L (136-145)
[2021-02-26] MEDS: methylPREDNISolone Sod Succ 40 MG VIAL IVP SCH ×3 (05:24→17:36)
[2021-02-26 08:15] LABS: Sodium 136 mmol/L (136-145)
[2021-02-26] MEDS: Thiamine 100 MG TAB PO SCH (09:05)
[2021-02-26] MEDS: Folic Acid 1 MG TAB PO SCH (09:05)
[2021-02-26] MEDS: Apixaban 5 MG TAB PO SCH ×2 (09:05→20:55)
[2021-02-26] MEDS ORDERED: Fentanyl CADD 100 ML ONE (10:52)
[2021-02-26] MEDS: Fentanyl CADD 100 ML IV SCH (10:57)
[2021-02-27] MEDS: methylPREDNISolone Sod Succ 40 MG VIAL IVP SCH ×5 (00:27→23:33)
[2021-02-27] MEDS: Famotidine/PF 20 mg/2ml Vial SLOW IVP SCH ×2 (00:27→16:31)
[2021-02-27 04:50] LABS: Anion Gap 12 mmol/L (10-20); BUN (Urea Nitrogen) 15 mg/dL (8.4-25.7); Calc. Creatinine Clearance 73 mL/min (70-130); Calcium 9.3 mg/dL (7.8-10.44); Carbon Dioxide 32 mmol/L (23-31); Chloride 100 mmol/L (98-107); Glucose 129 mg/dL (80-115); Magnesium 2.1 mg/dL (1.6-2.6); Potassium 4.2 mmol/L (3.5-5.1); Sodium 140 mmol/L (136-145)
[2021-02-27 05:17] LABS: Thyroid Stimulating Hormone 1.1647 uIU/mL (0.35-4.94)
[2021-02-27 06:14] LABS: Band 13 % (5-11); Lymphocytes 2 % (21-51); MDiff Complete? YES; Mean Corpuscular HGB CONC 31.2 g/dL (32.0-36.0); Mean Corpuscular Hemoglobin 29.4 pg (27.0-31.0); Mean Corpuscular Volume 94.1 fL (78.0-98.0); Mean Platelet Volume 7.1 fL (7.4-10.4); Monocytes 8 % (0-10); Neutrophil 77 % (42-75); Platelet Count 449 thou/uL (130-400); RBC Distribution Width 13.6 % (11.5-14.5); Red Blood Cell (RBC) Count 3.74 mill/uL (4.70-6.10); White Blood Cell (WBC) Count 14.2 thou/uL (4.8-10.8)
[2021-02-27] MEDS: cefTRIAXone\\ROCEPHIN 1 GM in Sodium Chloride 0.9% 100 ML IVPB SCH (08:31)
[2021-02-27] MEDS: Thiamine 100 MG TAB PO SCH (08:32)
[2021-02-27] MEDS: Folic Acid 1 MG TAB PO SCH (08:32)
[2021-02-27] MEDS: Apixaban 5 MG TAB PO SCH ×2 (08:32→20:58)
[2021-02-27] MEDS ORDERED: Furosemide 40 MG/4 ML VIAL SLOW IVP SCH (17:15)
[2021-02-27] MEDS: Famotidine 20 MG TAB PO SCH (20:58)
[2021-02-28 05:17] LABS: #Lymphocytes 0.3 thou/uL (1.20-3.40); #Monocytes 0.8 thou/uL (0.11-0.59); %Basophils 0.1 % (0.0-1.0); %Eosinophils 0.1 % (0.0-10.0); %Lymphocytes 1.9 % (21.0-51.0); %Neutrophils 91.9 % (42.0-75.0); Hemoglobin 11.8 g/dL (14.0-18.0); Mean Corpuscular HGB CONC 30.6 g/dL (32.0-36.0); Mean Corpuscular Hemoglobin 29.2 pg (27.0-31.0); Mean Corpuscular Volume 95.6 fL (78.0-98.0); Mean Platelet Volume 7.1 fL (7.4-10.4); Platelet Count 454 thou/uL (130-400); RBC Distribution Width 13.2 % (11.5-14.5); Red Blood Cell (RBC) Count 4.04 mill/uL (4.70-6.10)
[2021-02-28 05:23] LABS: Anion Gap 11 mmol/L (10-20); BUN (Urea Nitrogen) 14 mg/dL (8.4-25.7); Calc. Creatinine Clearance 65 mL/min (70-130); Carbon Dioxide 36 mmol/L (23-31); Chloride 94 mmol/L (98-107); Glucose 131 mg/dL (80-115); Magnesium 2.1 mg/dL (1.6-2.6); Potassium 4.2 mmol/L (3.5-5.1); Sodium 137 mmol/L (136-145)
[2021-02-28] MEDS: methylPREDNISolone Sod Succ 40 MG VIAL IVP SCH ×2 (05:53→13:30)
[2021-02-28] MEDS ORDERED: Cefdinir 300 MG CAP PO SCH (09:00)
[2021-02-28] MEDS: Apixaban 5 MG TAB PO SCH (10:04)
[2021-02-28] MEDS: Folic Acid 1 MG TAB PO SCH (10:05)
[2021-02-28] MEDS: Thiamine 100 MG TAB PO SCH (10:05)
[2021-02-28] MEDS: Famotidine 20 MG TAB PO SCH (10:05)
[2021-02-28] MEDS: cefTRIAXone\\ROCEPHIN 1 GM in Sodium Chloride 0.9% 100 ML IVPB SCH (10:12)
[2021-02-28 11:55] VITALS: BP 116/68; TEMP 98.6
== END 2021-02-28 12:11 | disposition home or self-care (01) | DRG 915 ==
LOC: ERS 07:38 → CCU 09:08 → 2NO 02-27 14:48
PROVIDERS: ADMIT Internal Medicine; ATTEND Internal Medicine
PROC: 0BH17EZ Insertion of Endotracheal Airway into Trachea, Via Natural or Artificial Opening (ICD-10-PCS; principal; 2021-02-25)
PROC: 5A1945Z Respiratory Ventilation, 24-96 Consecutive Hours (ICD-10-PCS; 2021-02-25)
PROC: 3E033XZ Introduction of Vasopressor into Peripheral Vein, Percutaneous Approach (ICD-10-PCS; 2021-02-25)
DX: T78.3XXA Angioneurotic edema, initial encounter (principal); J96.01 Acute respiratory failure with hypoxia; J44.1 Chronic obstructive pulmonary disease with (acute) exacerbation; I50.22 Chronic systolic (congestive) heart failure; E22.2 Syndrome of inappropriate secretion of antidiuretic hormone; Z20.822 Contact with and (suspected) exposure to COVID-19; F17.210 Nicotine dependence, cigarettes, uncomplicated; F14.10 Cocaine abuse, uncomplicated; D72.829 Elevated white blood cell count, unspecified; D64.9 Anemia, unspecified; D47.3 Essential (hemorrhagic) thrombocythemia; I25.10 Atherosclerotic heart disease of native coronary artery without angina pectoris; F10.10 Alcohol abuse, uncomplicated; Z78.1 Physical restraint status; Z79.51 Long term (current) use of inhaled steroids; Z79.899 Other long term (current) drug therapy; Z92.29 Personal history of other drug therapy
CPT/HCPCS: 0240U; 31500; 36415; 36416; 36600; 71045; 80048; 80053; 80306; 82607; 82746; 82805; 83735; 83880; 83930; 83935; 84100; 84295; 84300; 84443; 84484; 85025; 86161; 86850; 86900; 86901; 93005; 93306; 94002; 94003; 94640; 96365; 96374; 96375; 96376; J0171; J0696; J1940; J2060; J2704; J2920; J2930; J3010; J3490; J7611; J7620; S0028

== ENCOUNTER 2021-03-12 06:23 | Inpatient (IN) | payer MEDICARE ==
[2021-03-12 06:57] LABS: Analyzer IN Cardio ER; Base Excess (BEa) 7.7 mEq/L (-2.0 to +3.0); Calcium, Ionized (arterial) 1.18 mmol/L (1.12-1.30); Carboxyhemoglobin (COHb) 1.2 gm% (0.0-3.0); Hemoglobin (Hb) 13.2 g/dL (14.0-18.0); O2 Tension (PaO2), arterial 180.6 mmHg (> 70.0); pH, Arterial 7.26 (7.35-7.45)
[2021-03-12 06:58] LABS: CO2 Tension 87.5 mmHg (35.0-45.0)
[2021-03-12 06:59] LABS: ALV-art Gradient 423.025 mmHg (0-20); Puncture Site RRA
[2021-03-12] MEDS ORDERED: methylPREDNISolone Sod Succ/PF 125 MG/2 ML VIAL ONE (07:28)
[2021-03-12] MEDS ORDERED: Albuterol 200 PUFF (6.7GM INHALER) ONE (07:40)
[2021-03-12 07:41] LABS: Hemoglobin 13.4 g/dL (14.0-18.0); Mean Corpuscular HGB CONC 31.4 g/dL (32.0-36.0); Mean Corpuscular Volume 95.4 fL (78.0-98.0); Mean Platelet Volume 7.3 fL (7.4-10.4); Platelet Count 303 thou/uL (130-400); RBC Distribution Width 14.6 % (11.5-14.5); Red Blood Cell (RBC) Count 4.49 mill/uL (4.70-6.10); White Blood Cell (WBC) Count 20.2 thou/uL (4.8-10.8)
[2021-03-12 08:06] LABS: Band 4 % (5-11); Lymphocytes 1 % (21-51); MDiff Complete? YES; Monocytes 5 % (0-10); Neutrophil 90 % (42-75); Platelet Morphology Comment Appears Adequate; RBC Morphology Normal
[2021-03-12 08:21] LABS: CKMB 4.5 ng/mL (0-6.6)
[2021-03-12] MEDS ORDERED: Cefepime 2 GM VIAL ONE (08:30)
[2021-03-12] MEDS ORDERED: Azithromycin 500 MG VIAL ONE (08:30)
[2021-03-12] MEDS ORDERED: cefTRIAXone\\ROCEPHIN 2 GM VIAL ONE (08:33)
[2021-03-12 09:26] LABS: ALT (SGPT) 48 U/L (8-55); AST (SGOT) 33 U/L (5-34); Albumin 4.1 g/dL (3.4-4.8); Alkaline Phosphatase 94 U/L (40-110); Anion Gap 19 mmol/L (10-20); BUN (Urea Nitrogen) 36 mg/dL (8.4-25.7); Bilirubin, Total 0.5 mg/dL (0.2-1.2); Calc. Creatinine Clearance 0 mL/min (70-130); Calcium 9.2 mg/dL (7.8-10.44); Carbon Dioxide 33 mmol/L (23-31); Chloride 88 mmol/L (98-107); Globulin 3.4 g/dL (2.4-3.5); Glucose 125 mg/dL (80-115); Potassium 4.9 mmol/L (3.5-5.1); Protein, Total 7.5 g/dL (5.8-8.1); Sodium 135 mmol/L (136-145)
[2021-03-12 10:23] LABS: SARS-CoV-2 NAA Rapid Test Not Detected (NotDetected)
[2021-03-12] MEDS ORDERED: Albuterol Sulfate 2.5 mg/3 ml Neb ONE (10:43)
[2021-03-12 10:53] LABS: Actual Bicarbonate (HCO3a) 33.9 mEq/L (22-28); Analyzer IN Cardio ER; Base Excess (BEa) 3.2 mEq/L (-2.0 to +3.0); Calcium, Ionized (arterial) 1.13 mmol/L (1.12-1.30); Carboxyhemoglobin (COHb) 1.1 gm% (0.0-3.0); Hemoglobin (Hb) 13.4 g/dL (14.0-18.0); Potassium - ABG Lab 4.63 mmol/L (3.70-5.30)
[2021-03-12 10:57] LABS: CO2 Tension 87.4 mmHg (35.0-45.0); Puncture Site RRA; pH, Arterial 7.21 (7.35-7.45)
[2021-03-12 11:43] LABS: Troponin I 0.094 ng/mL (< 0.028)
[2021-03-12 11:55] LABS: Lactic Acid 4.2 mmol/L (0.5-2.2)
[2021-03-12] MEDS ORDERED: methylPREDNISolone Sod Succ/PF 125 MG/2 ML VIAL IVP SCH (12:00)
[2021-03-12 14:41] LABS: Troponin I 0.102 ng/mL (< 0.028)
[2021-03-12] MEDS ORDERED: Ketamine 50 MG/ML (10ML VIAL) ONE (15:04)
[2021-03-12] MEDS ORDERED: Rocuronium Bromide 10 MG/ML (10ML VIAL) ONE (15:05)
[2021-03-12] MEDS ORDERED: Propofol 1,000 MG/100 ML VIAL IV ONE ×3 (15:11→17:54)
[2021-03-12] MEDS ORDERED: Fentanyl CADD 100 ML IV SCH ×2 (15:45→19:00)
[2021-03-12 15:50] LABS: Actual Bicarbonate (HCO3a) 28.6 mEq/L (22-28); Analyzer IN Cardio ER; Base Excess (BEa) 2.9 mEq/L (-2.0 to +3.0); CO2 Tension 49.2 mmHg (35.0-45.0); Calcium, Ionized (arterial) 1.05 mmol/L (1.12-1.30); Carboxyhemoglobin (COHb) 0.5 gm% (0.0-3.0); Hemoglobin (Hb) 11.9 g/dL (14.0-18.0); O2 Tension (PaO2), arterial 70.7 mmHg (> 70.0); Potassium - ABG Lab 4.17 mmol/L (3.70-5.30); pH, Arterial 7.38 (7.35-7.45)
[2021-03-12 15:55] LABS: Puncture Site RRA
[2021-03-12] MEDS: Cefepime 2 GM in Sodium Chloride 0.9% 100 ML IVPB SCH (18:13)
[2021-03-12] MEDS: methylPREDNISolone Sod Succ 40 MG VIAL IVP SCH ×2 (18:14)
[2021-03-12] MEDS ORDERED: Morphine 2 MG/ML VIAL SLOW IVP PRN (19:00)
[2021-03-12] MEDS ORDERED: Lorazepam 2 MG/ML VIAL SLOW IVP PRN (19:00)
[2021-03-12] MEDS ORDERED: Fentanyl BOLUS 250 ML IVPB PRN (19:00)
[2021-03-12] MEDS ORDERED: DISCONTINUE PREVIOUS NARCOTIC PAIN MEDICATIONS AND BENZODIAZEPINES FS SCH (19:00)
[2021-03-12] MEDS ORDERED: Propofol BOLUS 1,000 MG/100 ML VIAL IV PRN (19:00)
[2021-03-12] MEDS ORDERED: Propofol 1,000 MG/100 ML VIAL IV PRN (19:00)
[2021-03-12] MEDS: Sodium Chloride 0.9% 1,000 ML IV SCH (19:54)
[2021-03-12] MEDS ORDERED: Furosemide 40 MG/4 ML VIAL SLOW IVP SCH (21:00)
[2021-03-13] MEDS: Cefepime 2 GM in Sodium Chloride 0.9% 100 ML IVPB SCH ×3 (01:12→17:07)
[2021-03-13] MEDS: methylPREDNISolone Sod Succ 40 MG VIAL IVP SCH ×4 (02:18→20:37)
[2021-03-13 04:52] LABS: Anion Gap 14 mmol/L (10-20); BUN (Urea Nitrogen) 27 mg/dL (8.4-25.7); Calc. Creatinine Clearance 66 mL/min (70-130); Calcium 7.9 mg/dL (7.8-10.44); Carbon Dioxide 28 mmol/L (23-31); Chloride 98 mmol/L (98-107); Glucose 123 mg/dL (80-115); Potassium 4.7 mmol/L (3.5-5.1); Sodium 135 mmol/L (136-145)
[2021-03-13 05:13] LABS: #Lymphocytes 0.8 thou/uL (1.20-3.40); %Basophils 0.1 % (0.0-1.0); %Eosinophils 0.1 % (0.0-10.0); %Lymphocytes 6.6 % (21.0-51.0); %Monocytes 8.7 % (0.0-10.0); %Neutrophils 84.5 % (42.0-75.0); Hemoglobin 11.5 g/dL (14.0-18.0); Mean Corpuscular HGB CONC 32.7 g/dL (32.0-36.0); Mean Corpuscular Hemoglobin 30.4 pg (27.0-31.0); Mean Platelet Volume 7.4 fL (7.4-10.4); Platelet Count 264 thou/uL (130-400); RBC Distribution Width 14.5 % (11.5-14.5); White Blood Cell (WBC) Count 11.9 thou/uL (4.8-10.8)
[2021-03-13] MEDS: Furosemide 40 MG/4 ML VIAL SLOW IVP SCH (08:38)
[2021-03-13 10:42] LABS: Amphetamine Not Detected (NotDetected); Barbiturates Screen Not Detected (NotDetected); Benzodiazepine Screen Not Detected (NotDetected); Cocaine Metabolite Screen Not Detected (NotDetected); Medtox Control Line Valid? VALID (VALID); Medtox Reader # READER 4; Methadone Not Detected (NotDetected); Methamphetamine Not Detected (NotDetected); Opiate Screen Not Detected (NotDetected); Oxycodone Screen Not Detected (NotDetected); Phencyclidine (PCP) Not Detected (NotDetected); THC/Cannabinoid Screen Not Detected (NotDetected); Tricyclic Screen Not Detected (NotDetected)
[2021-03-13] MEDS: Sodium Chloride 0.9% 1,000 ML IV SCH (14:49)
[2021-03-13] MEDS ORDERED: Fentanyl CADD 100 ML ONE (23:52)
[2021-03-14] MEDS: Cefepime 2 GM in Sodium Chloride 0.9% 100 ML IVPB SCH ×3 (00:52→17:01)
[2021-03-14] MEDS: methylPREDNISolone Sod Succ 40 MG VIAL IVP SCH ×5 (00:53→17:01)
[2021-03-14 08:01] LABS: Actual Bicarbonate (HCO3a) 27.4 mEq/L (22-28); Base Excess (BEa) 5.7 mEq/L (-2.0 to +3.0); CO2 Tension 31.5 mmHg (35.0-45.0); Calcium, Ionized (arterial) 1.07 mmol/L (1.12-1.30); Carboxyhemoglobin (COHb) 0.6 gm% (0.0-3.0); Hemoglobin (Hb) 14.3 g/dL (14.0-18.0); O2 Tension (PaO2), arterial 73.6 mmHg (> 70.0); Potassium - ABG Lab 4.11 mmol/L (3.70-5.30)
[2021-03-14 08:28] LABS: Puncture Site LBA; pH, Arterial 7.56 (7.35-7.45)
[2021-03-14 08:29] LABS: ALV-art Gradient 172.225 mmHg (0-20)
[2021-03-14] MEDS: Furosemide 40 MG/4 ML VIAL SLOW IVP SCH (08:33)
[2021-03-14] MEDS ORDERED: DC Sedation Protocol FS ONE (08:54)
[2021-03-14] MEDS ORDERED: Famotidine/PF 20 mg/2ml Vial SLOW IVP SCH (09:00)
[2021-03-14] MEDS ORDERED: Apixaban 5 MG TAB PO SCH (09:30)
[2021-03-14] MEDS: Nicotine 14 MG PATCH TD SCH (10:16)
[2021-03-14] MEDS: Sodium Chloride 0.9% 1,000 ML IV SCH (10:21)
[2021-03-14 13:26] LABS: #Basophils 0.1 thou/uL (0.0-0.2); #Lymphocytes 1.1 thou/uL (1.20-3.40); #Monocytes 1.1 thou/uL (0.11-0.59); #Neutrophils 10.8 thou/uL (1.40-6.50); %Basophils 0.5 % (0.0-1.0); %Eosinophils 0.1 % (0.0-10.0); %Lymphocytes 8.2 % (21.0-51.0); %Monocytes 8.7 % (0.0-10.0); %Neutrophils 82.5 % (42.0-75.0); Hemoglobin 14.6 g/dL (14.0-18.0); Mean Corpuscular HGB CONC 31.7 g/dL (32.0-36.0); Mean Corpuscular Hemoglobin 29.9 pg (27.0-31.0); Mean Corpuscular Volume 94.1 fL (78.0-98.0); Mean Platelet Volume 7.4 fL (7.4-10.4); Platelet Count 315 thou/uL (130-400); RBC Distribution Width 14.7 % (11.5-14.5); Red Blood Cell (RBC) Count 4.89 mill/uL (4.70-6.10); White Blood Cell (WBC) Count 13.1 thou/uL (4.8-10.8)
[2021-03-14 13:37] LABS: Anion Gap 14 mmol/L (10-20); BUN (Urea Nitrogen) 28 mg/dL (8.4-25.7); Calc. Creatinine Clearance 51 mL/min (70-130); Calcium 8.9 mg/dL (7.8-10.44); Carbon Dioxide 31 mmol/L (23-31); Chloride 96 mmol/L (98-107); Glucose 135 mg/dL (80-115); Potassium 4.4 mmol/L (3.5-5.1); Sodium 137 mmol/L (136-145)
[2021-03-14] MEDS: Apixaban 5 MG TAB PO SCH (20:07)
[2021-03-15] MEDS: Cefepime 2 GM in Sodium Chloride 0.9% 100 ML IVPB SCH ×2 (01:01→08:49)
[2021-03-15] MEDS: methylPREDNISolone Sod Succ 40 MG VIAL IVP SCH ×2 (01:03→05:57)
[2021-03-15 03:56] LABS: Anion Gap 14 mmol/L (10-20); BUN (Urea Nitrogen) 24 mg/dL (8.4-25.7); Calc. Creatinine Clearance 52 mL/min (70-130); Calcium 8.7 mg/dL (7.8-10.44); Carbon Dioxide 28 mmol/L (23-31); Chloride 99 mmol/L (98-107); Glucose 161 mg/dL (80-115); Potassium 4.3 mmol/L (3.5-5.1); Sodium 137 mmol/L (136-145)
[2021-03-15 04:15] LABS: #Lymphocytes 0.3 thou/uL (1.20-3.40); #Monocytes 1.1 thou/uL (0.11-0.59); #Neutrophils 11.3 thou/uL (1.40-6.50); %Eosinophils 0.1 % (0.0-10.0); %Lymphocytes 2.5 % (21.0-51.0); %Monocytes 8.3 % (0.0-10.0); Mean Corpuscular HGB CONC 32.7 g/dL (32.0-36.0); Mean Corpuscular Hemoglobin 30.7 pg (27.0-31.0); Mean Corpuscular Volume 93.8 fL (78.0-98.0); Mean Platelet Volume 7.5 fL (7.4-10.4); Platelet Count 278 thou/uL (130-400); RBC Distribution Width 14.6 % (11.5-14.5); Red Blood Cell (RBC) Count 4.54 mill/uL (4.70-6.10); White Blood Cell (WBC) Count 12.7 thou/uL (4.8-10.8)
[2021-03-15] MEDS: Apixaban 5 MG TAB PO SCH ×2 (08:49→20:16)
[2021-03-15] MEDS: Furosemide 40 MG/4 ML VIAL SLOW IVP SCH (08:50)
[2021-03-15] MEDS: Nicotine 14 MG PATCH TD SCH (08:51)
[2021-03-15] MEDS: Cefdinir 300 MG CAP PO SCH (11:35)
[2021-03-15] MEDS: predniSONE 20 MG TAB PO SCH (11:35)
[2021-03-16] MEDS ORDERED: Furosemide 40 MG TAB PO SCH (07:30)
[2021-03-16] MEDS: Cefdinir 300 MG CAP PO SCH (08:27)
[2021-03-16] MEDS: Apixaban 5 MG TAB PO SCH (08:27)
[2021-03-16] MEDS: predniSONE 20 MG TAB PO SCH (08:27)
[2021-03-16] MEDS: Nicotine 14 MG PATCH TD SCH (10:59)
[2021-03-16 12:11] VITALS: BMI 19.9
[2021-03-16 17:27] VITALS: BP 153/84; TEMP 98.1
== END 2021-03-16 17:37 | disposition home health service (06) | DRG 871 ==
LOC: ERS 06:23 → ERHOLD 10:41 → CCU 16:47 → T4-B 03-15 09:49
PROVIDERS: ADMIT Internal Medicine; ATTEND Internal Medicine
PROC: 5A1945Z Respiratory Ventilation, 24-96 Consecutive Hours (ICD-10-PCS; principal; 2021-03-12)
PROC: 0BH17EZ Insertion of Endotracheal Airway into Trachea, Via Natural or Artificial Opening (ICD-10-PCS; 2021-03-12)
PROC: 0D9670Z Drainage of Stomach with Drainage Device, Via Natural or Artificial Opening (ICD-10-PCS; 2021-03-12)
DX: A41.50 Gram-negative sepsis, unspecified (principal); J96.21 Acute and chronic respiratory failure with hypoxia; J15.6 Pneumonia due to other Gram-negative bacteria; L89.153 Pressure ulcer of sacral region, stage 3; I50.33 Acute on chronic diastolic (congestive) heart failure; J96.22 Acute and chronic respiratory failure with hypercapnia; J44.0 Chronic obstructive pulmonary disease with (acute) lower respiratory infection; J44.1 Chronic obstructive pulmonary disease with (acute) exacerbation; Z20.822 Contact with and (suspected) exposure to COVID-19; I25.10 Atherosclerotic heart disease of native coronary artery without angina pectoris; F17.218 Nicotine dependence, cigarettes, with other nicotine-induced disorders; R91.1 Solitary pulmonary nodule; Z88.8 Allergy status to other drugs, medicaments and biological substances; Z79.01 Long term (current) use of anticoagulants; Z79.52 Long term (current) use of systemic steroids; Z79.51 Long term (current) use of inhaled steroids; Z79.899 Other long term (current) drug therapy; Z78.1 Physical restraint status; Z91.19 Patient's noncompliance with other medical treatment and regimen
CPT/HCPCS: 0240U; 31500; 36415; 36416; 36600; 51702; 71045; 80048; 80053; 80306; 82553; 82805; 83605; 83880; 84484; 85025; 87040; 87076; 87149; 93005; 94002; 94003; 94640; 94660; 96365; 96367; 96375; J0456; J0692; J0696; J1940; J2060; J2704; J2920; J2930; J3010; J3490; J7512; J7611; J7620; S0028